=== PATIENT | female | born 1945 | race Caucasian/White ===

== ENCOUNTER 2017-08-04 12:20 | Outpatient (CLI) ==
[2015-07-22 09:15] VITALS: BMI 25.1
--- NOTE | 2017-08-04 14:47 | US ---
EXAM: Thyroid ultrasound History: Abnormal thyroid function. Technique: Multiple sonographic images through the thyroid gland were obtained. Color duplex Dopple r was used to interrogate vascular flow. Findings: The right lobe of the thyroid measures 3.5 cm x 1.3 cm x 0.8 cm and is without discrete nodule identi fied. The thyroid isthmus measures 0.3 cm in thickness. There is a 5 mm nodule within the right side of th e thyroid isthmus. The left lobe of the thyroid measures 3.2 cm x 1.3 cm x 0.9 cm demonstrates a few small calcification s with the largest measuring 3 mm. The thyroid gland is not hypervascular. The thyroid gland is heterogeneous in general. No extrathyr oidal masses are identified. Impression: Normal sized heterogeneous thyroid gland with no suspicious nodules.
== END 2017-08-04 12:21 | disposition home or self-care (01) ==
LOC: RAD 12:20
PROVIDERS: ATTEND Family Medicine
DX: R89.9 Unspecified abnormal finding in specimens from other organs, systems and tissues (principal)

== ENCOUNTER 2017-11-07 09:00 | Outpatient (CLI) | payer OTHER ==
[2015-07-22 09:15] VITALS: BMI 25.1
[2017-11-07] MEDS ORDERED: VENOFER 200 MG in SODIUM CHLORIDE 100 ML IV ONE (09:19)
[2017-11-07 09:43] VITALS: BP 167/87; TEMP 97.1
== END 2017-11-07 09:01 | disposition home or self-care (01) ==
LOC: OPMED 09:00
PROVIDERS: ATTEND Internal Medicine
DX: D50.9 Iron deficiency anemia, unspecified (principal); K90.9 Intestinal malabsorption, unspecified

== ENCOUNTER 2017-11-09 11:00 | Outpatient (CLI) | payer OTHER ==
[2015-07-22 09:15] VITALS: BMI 25.1
[2017-11-09] MEDS ORDERED: VENOFER 200 MG in SODIUM CHLORIDE 100 ML IV ONE (11:12)
[2017-11-09 11:17] VITALS: BP 128/78; TEMP 97
== END 2017-11-09 11:01 | disposition home or self-care (01) ==
LOC: OPMED 11:00
PROVIDERS: ATTEND Internal Medicine
DX: D50.9 Iron deficiency anemia, unspecified (principal); K90.9 Intestinal malabsorption, unspecified
CPT/HCPCS: 96365

== ENCOUNTER 2017-11-14 09:15 | Outpatient (CLI) ==
[2015-07-22 09:15] VITALS: BMI 25.1
[2017-11-14] MEDS ORDERED: VENOFER 200 MG in SODIUM CHLORIDE 100 ML IV ONE (10:20)
[2017-11-15 15:31] VITALS: BP 112/63; TEMP 98.7
== END 2017-11-14 09:16 | disposition home or self-care (01) ==
LOC: OPMED 09:15
PROVIDERS: ATTEND Internal Medicine
DX: D50.9 Iron deficiency anemia, unspecified (principal); K90.9 Intestinal malabsorption, unspecified
CPT/HCPCS: 96365

== ENCOUNTER 2017-12-08 10:24 | Outpatient (CLI) ==
[2015-07-22 09:15] VITALS: BMI 25.1
== END 2017-12-08 10:25 | disposition home or self-care (01) ==
LOC: LAB 10:24
PROVIDERS: ATTEND Family Medicine
DX: E03.9 Hypothyroidism, unspecified (principal)
CPT/HCPCS: 36415; 84439; 84443

== ENCOUNTER 2022-10-26 08:48 | Inpatient (IN) ==
--- NOTE | 2022-10-26 08:53 | ED.PDOC ---
General ED Provider: Dr. NADINE JIMENEZ MD Chief Complaint: Hip Pain/Injury Stated Complaint: Hip pain 77-year-old female arrives via EMS for evaluation of hip pain. Patient has chronic hip pain for the last several months. Is managed with hydrocodone 7.5 mg. Reports that her pain has been worse in the last month. She had a fall last night that now is made it so she can barely move. Reports pain that is into her groin. States her left side is worse than her right. Time Seen by Provider: 10/26/22 08:51 Mode of Arrival: Ambulance Information Source: Patient Primary Care Provider: LYNN CHAPMAN Nursing and Triage Documentation Reviewed and Agree: Yes Does patient meet sepsis criteria?: No System Inflammatory Response Syndrome: Not Applicable Sepsis Protocol: For patient's 13 years and over: Temp is 96.8 and below OR 101 and greater Pulse >90 BPM Resp >20/minute Acutely Altered Mental Status Are patient's symptoms suggestive of a new infection, such as: -Pneumonia -Skin, Soft Tissue -Endocarditis -UTI -Bone, Joint Infection -Implantable Device -Acute Abdominal Infection -Wound Infection -Meningitis -Blood Stream Catheter Infection -Unknown Review of Systems Review Of Systems Constitutional: Reports No symptoms All Other Systems: Reviewed and Negative [facility] Surgical History History of ankle surgery Z98.890 - Other specified postprocedural states (ICD-10) Status post appendectomy Z90.49 - Acquired absence of other specified parts of digestive tract (ICD- 10) Status post cholecystectomy Z90.49 - Acquired absence of other specified parts of digestive tract (ICD- 10) Status post tonsillectomy Z90.89 - Acquired absence of other organs (ICD-10) Female Reproductive History Menstrual Hx Hysterectomy: No Hx Tubal Ligation: No Physical Exam Physical Exam Appearance: Reports Well-appearing Ill-appearing: None Pain Distress: None Eyes: Reports EOMI ENT: Reports Oropharynx normal Neck: Supple Respiratory: Reports Airway patent Cardiovascular: Reports Pulses normal GI/: Reports Not Examined Musculoskeletal: Reports Other (Pain with attempted range of motion of left hip. No shortening or rotation appreciated. No pain in ankle, knees bilaterally. She does have tenderness to palpation over bilateral greater trochanters.) Skin: Reports Warm, Dry and Normal color Neurological: Reports Alert and Oriented Psychiatric: Reports Affect appropriate Critical Care Note Critical Care Note Total Critical Care Time (mins): 0 Course Course Orders, Labs, Meds: Lab Review 10/26/22 09:20 Urine Color Yellow Urine Clarity Clear Urine pH 5.5 Ur Specific [place] 1.015 Urine Protein Negative Urine Glucose (UA) Negative Urine Ketones Negative Urine Blood Negative Urine Nitrite Negative Urine Bilirubin Negative Urine Urobilinogen 0.2 Ur Leukocyte Esterase Negative Orders Category Date Time Status UA [URINALYSIS C & S IF INDICATED] Stat LAB 10/26/22 09:[address] PELVIS W/O CONTRAST Stat RADS 10/26/22 09:40 Completed HIP, LEFT 2VWS W OR W/O PELVIS Stat RADS 10/26/22 08:51 Completed Patient reports that she been having urinary frequency. Urinalysis unremarkable. X-ray of the hip and pelvis shows pubic rami fracture. They recommend CT for further delineation of the extent of injuries. 11:[address] of the pelvis finally has been read. Multiple findings of notes including superior and inferior pubic rami fracture on the left, sacral insufficiency fracture, pelvic hematoma. Will discuss case with orthopedic surgery at [facility]. Doubt need for surgical intervention, but will clarify appropriate treatment plan and any further work-up required with orthopedics. 11:58 AM Case discussed with SUDHAKAR Trejo for Dr. Palumbo. Reviewed CT findings and patient's physical exam. He states there is no need for surgical intervention. The patient can follow-up with their office as an outpatient in 2 weeks. Plan to admit to the hospitalist service at our facility for pain control and evaluation by PT/OT. Vital Signs: Temp Pulse Resp BP Pulse Ox 10/26/22 08:49 97.9 F 83 20 135/72 98 Discharge Plan Discharge Patient Disposition: PLACED OBSERVATION Discharge Problem: Sacral insufficiency fracture, Closed fracture of pubic ramus Prescriptions: No Action duloxetine [Cymbalta] 20 mg capsule,delayed release(DR/EC) 20 mg PO DAILY hydrocodone-acetaminophen 7.5-325 mg tablet 1 tab PO Q6H PRN (Reason: pain) ibuprofen 200 MG capsule 400 mg PO PRN PRN (Reason: Analgesia) aspirin [Aspir-Low] 81 MG tablet,delayed release (DR/EC) 81 mg PO DAILY fluoxetine [Prozac] 20 MG capsule 1 cap PO DAILY Hold Instructions: doctor changed atorvastatin [Lipitor] 80 MG tablet 1 tab PO DAILY pantoprazole [Protonix] 20 MG tablet,delayed release (DR/EC) 20 mg PO BID gabapentin 300 MG capsule 2 cap PO TID Did you review [place] INFORMATION SECURITY CONSULTANT for ALL controlled substances?: Not Applicable ED Provider: NADINE JIMENEZ Condition: Good Physician Progress Note: []
--- NOTE | 2022-10-26 09:29 | DI ---
EXAM: AP PELVIS AND TWO VIEWS OF THE LEFT HIP HISTORY: Pain. COMPARISON: CT pelvis from 07/09/2021. FINDINGS/IMPRESSION: Unexpected finding. Comminuted fractures of the left pubic rami and left pubic body. The sacrum is partially obscured by pelvic contents and there is generalized osteopenia. An additional fracture is difficult to exclude. Degenerative changes to the hips, pelvis and lower lumbar spine. Consider follow-up CT pelvis for further evaluation.
[2022-10-26 10:45] LABS: BILIRUBIN,URINE Negative (NEGATIVE); CLARITY,URINE Clear (CLEAR); COLOR,URINE Yellow (YELLOW); GLUCOSE, URINE (UA) Negative (NEGATIVE); KETONES,URINE Negative (NEGATIVE); LEUKOCYTE ESTERASE ,URINE Negative (NEGATIVE); NITRITE,URINE Negative (NEGATIVE); PH,URINE 5.5 (5-9); PROTEIN,URINE Negative (NEGATIVE); URINE, BLOOD Negative (NEGATIVE); UROBILINOGEN,URINE 0.2 (0.2)
--- NOTE | 2022-10-26 11:03 | CT ---
EXAM: CT OF THE PELVIS WITHOUT CONTRAST COMPARISON: Pelvis/left hip radiograph 10/26/2022. CT pelvis 07/09/2021. HISTORY: Fall yesterday, landing on the left side. Fractures seen on recent radiographs. Reported change in urinary habits with uncontrolled urination. TECHNIQUE: Noncontrast CT images of the pelvis were obtained. Axial reconstructions with sagittal a nd coronal reformats were provided. FINDINGS: Comminuted fracture through the left superior inferior pubic ramus with extension into a p arasymphyseal location. There is up to 0.5 cm displacement of fracture fragments in a parasymphyseal location through the adjacent superior pubic ramus. There is edema and ill-defined fluid with stran ding of the fat within the adjacent left kaleb pelvis. 6.2 x 2.3 x 1.5 cm ill-defined region of abnor mal attenuation along the left lateral margin of the urinary bladder best seen on image 65 of the axi al series suggests a small hematoma related to underlying fracture. This extends along the margin of the bladder without significant mass effect at this time. The bladder itself is grossly unremarkabl e. Bilateral sacral alar insufficiency fractures more extensive on the right side extending from S1- S4. The insufficiency fracture of the sacrum traverses the midline at the level of the upper third a nd lower second sacral segment with up to 0.5 cm cortical step off at that level. There is some angu lation up to 3 mm retropulsion of the posterior cortex of the second and third sacral segments as see n on the sagittal view. No significant sacral foraminal narrowing. Diffuse demineralization. Minim al chronic-appearing irregularity of the anteromedial cortex of the left femoral neck without definit e evidence of an acute fracture. Intervertebral disc space narrowing throughout the visualized lower lumbar spine with bilateral facet hypertrophy. Grade 1 anterolisthesis at L4/L5 as noted on CT lumbar spine 07/09/2021. Moderate hyp ertrophic degenerative changes of the sacroiliac joints without ankylosis. Marked hypertrophic degen erative change and chronic osseous remodeling at the pubic symphysis. Mild to moderate degenerative changes of the hips bilaterally. Mild subcutaneous edema posteriorly at the sacrum and coccyx without deep decubitus ulcer or drainabl e fluid collection. Stranding of the fat along the margin of the rectus abdominous musculature bilat erally through the level of the pubic symphysis and along the anterosuperior aspect of the urinary bl adder. IMPRESSION: Comminuted fracture with displacement of the left superior/inferior pubic rami through t he parasymphyseal portion of the pubic symphysis. Stranding of the fat within the underlying pelvis with a 6.2 x 2.3 x 1.5 cm suspected hematoma along the left anterolateral aspect of the bladder as de tailed above. Correlation with CT urography could be considered if there is high clinical concern fo r bladder injury. Comminuted insufficiency fracture of the sacrum involving the sacral ala bilaterally and with fractur e traversing the midline at S2 and S3. Mild retropulsion at that site. Correlate with neurovascular exam. No significant sacral foraminal narrowing. Mild chronic cortical irregularity of the the anteromedial aspect of the left femoral neck without de finite acute fracture. Demineralization. Additional chronic / degenerative changes as detailed above. All CT scans are performed using dose optimization techniques as appropriate to the performed exam an d include at least one of the following: Automated exposure control, adjustment of the mA and/or kV according t o size, and the use of iterative reconstruction technique.
[2022-10-26] MEDS ORDERED: MORPHINE 4 MG/ML SYRINGE IVP ONE (12:41)
[2022-10-26 13:45] VITALS: BMI 27.1
[2022-10-26] MEDS ORDERED: TYLENOL PO PRN (13:49)
[2022-10-26] MEDS ORDERED: ZOFRAN 4 MG/2 ML IVP PRN (13:49)
[2022-10-26] MEDS ORDERED: MORPHINE 2 MG/ML SYRINGE IVP PRN (13:49)
--- NOTE | 2022-10-26 14:02 | PCM ---
Date of Service Date Seen by Provider: 10/26/22 Time Seen by Provider: 13:30 Admit Day/Time Admission Date: 10/26/22 Reason for Admission Chief Complaint: PELVIC FRACTURE, PAIN CONTROL Hospital Provider Hospital Provider: REYNALDO GUEVARA, [facility] [place] Primary Care Physician Primary Care Physician: LYNN CHAPMAN History of Present Illness History of Present Illness: 77-year-old female presented to the ER following a fall from yesterday. Patient sustained a fall around October 15 resulting in multiple pelvic fractures. Patient was discharged home to follow-up with physical therapy outpatient. Yesterday daughter was at home with patient and advised patient to walk without walker and patient fell again. No no new injuries noted. No loss of consciousness. Patient denies fever, chills, shortness of breath, chest pain, nausea, vomiting or diarrhea. Patient states that since the fall yesterday she has had uncontrolled pain which brought her to the ER today. She has been taking [place] 7.5's at home every 6 hours as needed for pain. Case Discussed With Case Discussed With: Patient's case was discussed with the ER Physicians, Dr. Varela. [facility] Medical History (Updated 10/26/22 @ 13:59 by REYNALDO GUEVARA) Acid reflux disease K21.9 - Gastro-esophageal reflux disease without esophagitis (ICD-10) Anxiety F41.9 - Anxiety disorder, unspecified (ICD-10) Breast cancer C50.919 - Malignant neoplasm of unspecified site of unspecified female breast (ICD-10) Closed fracture of pubic ramus S32.599A - Other specified fracture of unspecified pubis, initial encounter for closed fracture (ICD-10) Compression fx, thoracic spine S22.000A - Wedge compression fracture of unspecified thoracic vertebra, initial encounter for closed fracture (ICD-10) Hypercholesteremia E78.00 - Pure hypercholesterolemia, unspecified (ICD-10) Hypertension I10 - Essential (primary) hypertension (ICD-10) Neuropathy G62.9 - Polyneuropathy, unspecified (ICD-10) Sacral insufficiency fracture M84.48XA - Pathological fracture, other site, initial encounter for fracture (ICD-10) Surgical History (Updated 10/26/22 @ 13:59 by REYNALDO GUEVARA) History of ankle surgery Z98.890 - Other specified postprocedural states (ICD-10) 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 - Presence of aortocoronary bypass graft (ICD-10) Status post appendectomy Z90.49 - Acquired absence of other specified parts of digestive tract (ICD- 10) Status post cholecystectomy Z90.49 - Acquired absence of other specified parts of digestive tract (ICD- 10) Status post mastectomy Z90.10 - Acquired absence of unspecified breast and nipple (ICD-10) Status post tonsillectomy Z90.89 - Acquired absence of other organs (ICD-10) Family History Other CHF (congestive heart failure) Coronary artery arteriosclerosis Hypertension Social History Smoking and tobacco status: Never smoker Allergies Allergies Allergy/AdvReac Type Severity Reaction Status Date / Time No Known Allergies Allergy Verified 10/26/22 08:55 Current Medications Home Medications ibuprofen 200 mg capsule 400 mg PO PRN PRN Analgesia 07/22/15 [History Confirmed 10/26/22 Last Taken Unknown] aspirin 81 mg tablet,delayed release (Aspir-Low) 81 mg PO DAILY 11/07/17 [History Confirmed 10/26/22 Last Taken 11/09/17 08:00] fluoxetine 20 mg capsule (Prozac) 1 cap PO DAILY 11/07/17 [History Confirmed 10/26/22 Last Taken 11/09/17] atorvastatin 80 mg tablet (Lipitor) 1 tab PO DAILY 11/09/17 [History Confirmed 10/26/22 Last Taken 11/08/17 17:00] gabapentin 300 mg capsule 2 cap PO TID 11/09/17 [History Confirmed 10/26/22 Last Taken 11/08/17 21:00] pantoprazole 20 mg tablet,delayed release (Protonix) 20 mg PO BID 11/09/17 [History Confirmed 10/26/22 Last Taken 11/09/17] duloxetine 20 mg capsule,delayed release (Cymbalta) 20 mg PO DAILY 10/26/22 [History Confirmed 10/26/22 Last Taken Unknown] hydrocodone 7.5 mg-acetaminophen 325 mg tablet 1 tab PO Q6H PRN pain 10/26/22 [History Confirmed 10/26/22 Last Taken Unknown] Home Acetaminophen (Acetaminophen 325 Mg Tablet) 650 mg PO Q4H PRN PRN Reason: Mild Pain Hydrocodone Bitart/Acetaminophen (Hydrocodone Bit/Acetaminophen 7.5/325 Mg Tablet) 1 tab PO Q4HR PRN PRN Reason: MODERATE PAIN Enoxaparin Sodium (Enoxaparin Sodium 30 Mg/0.3 Ml Syr) 30 mg SUBCUT DAILY MÓNICA Morphine Sulfate (Morphine Sulfate 2 Mg/Ml Syringe) 4 mg IVP Q6H PRN PRN Reason: Severe Pain Ondansetron HCl (Ondansetron Hcl/Pf 4 Mg/2 Ml Sdv) 4 mg IVP Q6H PRN PRN Reason: Nausea / Vomiting Discontinued Medications Morphine Sulfate (Morphine Sulfate 4 Mg/Ml Syringe) 4 mg IVP ONCE ONE Stop: 10/26/22 12:42 Last Admin: 10/26/22 13:01 Dose: 4 mg Review of Systems Constitutional: Reports No symptoms Head: Reports Normocephalic and Atraumatic Eyes: Reports No symptoms Ears: Reports No symptoms Nose: Reports No symptoms Mouth: Reports No symptoms Throat: Reports No symptoms Cardiovascular: Reports No symptoms Respiratory: Reports No symptoms Gastrointestinal: Reports No symptoms Genitourinary: Reports No Symptoms Musculoskeletal: Reports Other (bilateral hip pain) Endocrine: Reports No symptoms Hematology: Reports No symptoms Immunology: Reports No symptoms Neurological: Reports No symptoms Psychiatric: Reports No symptoms Physical examination Most Recent Vital Signs: Most Recent Vital Signs Temperature 97.0 F L 10/26/22 13:25 Temperature Source Temporal Artery Scan 10/26/22 13:25 Temperature Source Infrared 10/26/22 08:49 Pulse Rate 84 10/26/22 13:25 Respiratory Rate 16 10/26/22 13:25 Blood Pressure 135/72 10/26/22 08:49 Blood Pressure Left Arm 114/68 10/26/22 13:25 Blood Pressure Position Supine 10/26/22 13:25 O2 Sat by Pulse Oximetry 97 10/26/22 13:25 Oxygen Delivery Method Room Air 10/26/22 13:25 Height 5 ft 10/26/22 13:25 Weight 139 lb 10/26/22 13:25 Appearance: Positive Well-appearing, Well-nourished, No Apparent Distress and Alert and Oriented x3 Skin: Positive Warm, Good Turgor and Good Color HEENT: Positive Normocephalic, Atraumatic and PERRLA Neck: Positive Supple and Midline Trachea Chest/Lungs: Positive Symmetrical With Equal Breath Sounds, Clear to Auscultatio n Bilaterally and Good Air Movement all 4 Lung [place] Heart: Positive RRR, Pulses Normal, No S3 Auscultated and No S4 Auscultated GI/: Positive Soft, Nontender, Bowel Sounds Normal, No Distention and No Organomegaly Musculoskeletal: Positive Tenderness (bilateral hips) and Decreased ROM (Left worse than right) Extremities: Positive Intact Peripheral Pulses, Joint Tenderness and Joint Discomfort Neurological: Positive Sensation Intact, Alert and Muscle Strength 5/5 in Upper and Lower Extremities Bilaterally (weakness to lower extremities due to pelvic fractures) Psychiatric: Positive Oriented x4, Appropriate Mood, Appropriate Affect, Intact Memory, Good Short-Term Recall, Good Long-Term Recall, Normal Judgement and Normal Insight Labs This Visit Labs This Visit: Labs This Visit 10/26/22 09:20 Urine Color Yellow Urine Clarity Clear Urine pH 5.5 Ur Specific [place] 1.015 Urine Protein Negative Urine Glucose (UA) Negative Urine Ketones Negative Urine Blood Negative Urine Nitrite Negative Urine Bilirubin Negative Urine Urobilinogen 0.2 Ur Leukocyte Esterase Negative Imaging Imaging: EXAM: AP PELVIS AND TWO VIEWS OF THE LEFT HIP FINDINGS/IMPRESSION: Unexpected finding. Comminuted fractures of the left pubic rami and left pubic body. The sacrum is partially obscured by pelvic contents and there is generalized osteopenia. An additional fracture is difficult to exclude. Degenerative changes to the hips, pelvis and lower lumbar spine. Consider follow-up CT pelvis for further evaluation. EXAM: CT OF THE PELVIS WITHOUT CONTRAST FINDINGS: Comminuted fracture through the left superior inferior pubic ramus with extension into a parasymphyseal location. There is up to 0.5 cm displacement of fracture fragments in a parasymphyseal location through the adjacent superior pubic ramus. There is edema and ill-defined fluid with stranding of the fat within the adjacent left kaleb pelvis. 6.2 x 2.3 x 1.5 cm ill-defined region of abnormal attenuation along the left lateral margin of the urinary bladder best seen on image 65 of the axial series suggests a small hematoma related to underlying fracture. This extends along the margin of the bladder without significant mass effect at this time. The bladder itself is grossly unremarkable. Bilateral sacral alar insufficiency fractures more extensive on the right side extending from S1-S4. The insufficiency fracture of the sacrum traverses the midline at the level of the upper third and lower second sacral segment with up to 0.5 cm cortical step off at that level. There is some angulation up to 3 mm retropulsion of the posterior cortex of the second and third sacral segments as seen on the sagittal view. No significant sacral foraminal narrowing. Diffuse demineralization. Minimal chronic-appearing irregularity of the anteromedial cortex of the left femoral neck without definite evidence of an acute fracture. Intervertebral disc space narrowing throughout the visualized lower lumbar spine with bilateral facet hypertrophy. Grade 1 anterolisthesis at L4/L5 as noted on CT lumbar spine 07/09/2021. Moderate hypertrophic degenerative changes of the sacroiliac joints without ankylosis. Marked hypertrophic degenerative change and chronic osseous remodeling at the pubic symphysis. Mild to moderate degenerative changes of the hips bilaterally. Mild subcutaneous edema posteriorly at the sacrum and coccyx without deep dec ubitus ulcer or drainable fluid collection. Stranding of the fat along the margin of the rectus abdominous musculature bilaterally through the level of the pubic symphysis and along the anterosuperior aspect of the urinary bladder. IMPRESSION: Comminuted fracture with displacement of the left superior/inferior pubic rami through the parasymphyseal portion of the pubic symphysis. Stranding of the fat within the underlying pelvis with a 6.2 x 2.3 x 1.5 cm suspected hematoma along the left anterolateral aspect of the bladder as detailed above. Correlation with CT urography could be considered if there is high clinical concern for bladder injury. Comminuted insufficiency fracture of the sacrum involving the sacral ala bilaterally and with fracture traversing the midline at S2 and S3. Mild retropulsion at that site. Correlate with neurovascular exam. No significant sacral foraminal narrowing. Mild chronic cortical irregularity of the the anteromedial aspect of the left femoral neck without definite acute fracture. Demineralization. Additional chronic / degenerative changes as detailed above. Review Statement Review Statement: I have independently reviewed and interpreted the labs/EKGs/imaging that were ordered by the ER provider. I have reviewed all outside records that are available currently in our EMR including imaging/notes/labs from previous visits. Plan Plan: 1. Intractable pain in setting of fracture of the pubic rami and sacrum - continue home norco Q6H prn for pain, morphine 4 mg Q6H prn for severe pain, ER provider spoke with Xander DE LA FUENTE for Dr. Linwood ba and reported that no intervention needed for fractures, PT/OT to consult/eval, montoya catheter placed for ease of pain control d/t movement 2. Hypertension - chronic, stable, continue home medications 3. Hyperlipidemia - chronic, stable, continue home medications 4. GERD - chronic, continue home medications 5. Anxiety/Depression - continue home medications DVT Prophylaxis: Lovenox Time Spent: Greater than 80 minutes spent with patient, 50% of the time spent with this patient was devoted to counseling and coordination of care. [facility]annin minutes spent discussing advance care planning. Smoking Cessation: 3-10 minutes spent discussing smoking cessation. Disposition: Admit to: Full code Med/Surg Observation Discussed Plan of Care with Dr. Ranulfo Hernandez. Medications Medication Orders: Medications Ordered Category Date Time Status Acetaminophen [Tylenol] Meds 10/26/22 13:49 Ordered 650 mg PO Q4H PRN Enoxaparin Sodium [Lovenox] Meds 10/27/22 09:00 Ordered 30 mg SUBCUT DAILY Hydrocodone Bit/Acetaminophen [[place] 7.5-325] Meds 10/26/22 13:49 Ordered 1 tab PO Q4HR PRN Morphine Sulfate [Morphine 2 mg/ml Syringe] Meds 10/26/22 13:49 Ordered 4 mg IVP Q6H PRN Ondansetron HCl/Pf [Zofran 4 mg/2 ml] Meds 10/26/22 13:49 Ordered 4 mg IVP Q6H PRN
[2022-10-26 14:05] LABS: BASOPHILS % (AUTO) 0.4 % (0.0-3.0); EOSINOPHILS # (AUTO) 0.2 K/ul (0.0-0.7); EOSINOPHILS % (AUTO) 3.8 % (0.0-7.0); HEMATOCRIT 33.6 % (37.0-47.0); IMMATURE GRANULOCYTE % (AUTO) 0.2 % (0.0-5.0); LYMPHOCYTES # (AUTO) 1.2 K/uL (0.60-3.4); LYMPHOCYTES % (AUTO) 22.1 (10.0-50.0); MEAN CORPUSCULAR HEMOGLOBIN 29.4 pg (27.0-31.0); MEAN CORPUSCULAR HGB CONC 32.7 (31.8-35.4); MEAN CORPUSCULAR VOLUME 89.8 fl (81.0-99.0); MONOCYTES # (AUTO) 0.4 K/uL (0.4-2.0); MONOCYTES % (AUTO) 6.5 (0-10); NEUTROPHILS # (AUTO) 3.7 K/ul (2.0-6.9); PLATELET COUNT 408 10^3/uL (140-440); RDW COEFFICIENT OF VARIATION 14.1 % (11.6-14.8); RED BLOOD COUNT 3.74 10^6/ul (4.20-5.40); WHITE BLOOD COUNT 5.51 K/ul (4.6-10.2)
[2022-10-26] MEDS ORDERED: MOTRIN PO PRN (14:11)
[2022-10-26 14:19] LABS: ALANINE AMINOTRANSFERASE 22.3 U/L (0-35); ALBUMIN 4.01 g/dL (3.5-5.0); ALKALINE PHOSPHATASE 394.9 U/L (53-141); ASPARTATE AMINO TRANSFERASE 29.8 U/L (14-36); BILIRUBIN,TOTAL 0.67 mg/dL (0.2-1.3); BLOOD UREA NITROGEN 21.4 mg/dL (7-17); CALCIUM 8.46 mg/dL (8.4-10.2); CARBON DIOXIDE 32.7 mmol/L (22-30.0); CHLORIDE 94.5 mmol/L (98-107); CREATININE 0.83 mg/dL (0.60-1.30); GLUCOSE 117.9 mg/dL (74-106); SODIUM 130.2 mmol/L (134.5-145); TOTAL PROTEIN 7.54 g/dL (6.3-8.2)
[2022-10-26] MEDS ORDERED: MORPHINE 4 MG/ML SYRINGE IVP PRN (14:19)
[2022-10-26] MEDS ORDERED: POTASSIUM CHLORIDE 20 MEQ/100 ML PREMIX 20 MEQ/100 ML BAG IV ONE (14:30)
[2022-10-26] MEDS ORDERED: K-DUR PO ONE (14:30)
[2022-10-26] MEDS: NORCO 7.5-325 PO PRN ×2 (14:53→19:53)
[2022-10-26] MEDS: DULCOLAX PO PRN (14:54)
[2022-10-26] MEDS: SODIUM CHLORIDE 1,000 ML IV SCH (14:59)
[2022-10-26] MEDS ORDERED: NEURONTIN PO SCH (15:00)
[2022-10-26] MEDS ORDERED: PRILOSEC PO SCH (17:00)
[2022-10-26] MEDS: COREG PO SCH (18:05)
[2022-10-26] MEDS: RELAFEN PO SCH (18:06)
[2022-10-26] MEDS: MACRODANTIN PO SCH (20:13)
[2022-10-26] MEDS: CYMBALTA PO SCH (20:13)
[2022-10-26] MEDS: NEURONTIN PO SCH (20:13)
[2022-10-26] MEDS ORDERED: NABUMETONE 500 MG PO SCH (21:00)
[2022-10-26] MEDS ORDERED: DULOXETINE 20 MG PO SCH (21:00)
[2022-10-26] MEDS ORDERED: PANTOPRAZOLE 20 MG PO SCH (21:00)
[2022-10-26] MEDS ORDERED: NITROFURANTOIN 100 MG PO SCH (21:00)
[2022-10-27] MEDS: SODIUM CHLORIDE 1,000 ML IV SCH ×3 (00:57→21:05)
[2022-10-27] MEDS: NORCO 7.5-325 PO PRN ×4 (01:09→18:20)
[2022-10-27 04:58] LABS: BASOPHILS % (AUTO) 0.2 % (0.0-3.0); EOSINOPHILS # (AUTO) 0.2 K/ul (0.0-0.7); EOSINOPHILS % (AUTO) 4.8 % (0.0-7.0); HEMATOCRIT 26.8 % (37.0-47.0); HEMOGLOBIN 8.7 g/dl (12.0-16.0); IMMATURE GRANULOCYTE % (AUTO) 0.2 % (0.0-5.0); LYMPHOCYTES # (AUTO) 1.5 K/uL (0.60-3.4); LYMPHOCYTES % (AUTO) 29.2 (10.0-50.0); MEAN CORPUSCULAR HEMOGLOBIN 29.4 pg (27.0-31.0); MEAN CORPUSCULAR HGB CONC 32.5 (31.8-35.4); MEAN CORPUSCULAR VOLUME 90.5 fl (81.0-99.0); MONOCYTES # (AUTO) 0.4 K/uL (0.4-2.0); MONOCYTES % (AUTO) 8.7 (0-10); NEUTROPHILS # (AUTO) 2.9 K/ul (2.0-6.9); NEUTROPHILS % (AUTO) 56.9 % (42.2-75.2); PLATELET COUNT 308 10^3/uL (140-440); RDW COEFFICIENT OF VARIATION 14.3 % (11.6-14.8); RED BLOOD COUNT 2.96 10^6/ul (4.20-5.40); WHITE BLOOD COUNT 5.03 K/ul (4.6-10.2)
[2022-10-27 05:16] LABS: ALANINE AMINOTRANSFERASE 18.3 U/L (0-35); ALBUMIN 3.13 g/dL (3.5-5.0); ALKALINE PHOSPHATASE 302.3 U/L (53-141); ASPARTATE AMINO TRANSFERASE 28.4 U/L (14-36); BILIRUBIN,TOTAL 0.58 mg/dL (0.2-1.3); BLOOD UREA NITROGEN 20.4 mg/dL (7-17); CALCIUM 8.15 mg/dL (8.4-10.2); CARBON DIOXIDE 27.8 mmol/L (22-30.0); CHLORIDE 103.6 mmol/L (98-107); CREATININE 0.85 mg/dL (0.60-1.30); GLUCOSE 105.5 mg/dL (74-106); MAGNESIUM 2.38 mg/dL (1.6-2.3); POTASSIUM 3.92 mmol/L (3.5-5.1); SODIUM 131.7 mmol/L (134.5-145); TOTAL PROTEIN 6.13 g/dL (6.3-8.2)
[2022-10-27] MEDS: SYNTHROID PO SCH (05:56)
[2022-10-27] MEDS: PROTONIX PO SCH ×2 (05:57→16:00)
[2022-10-27] MEDS: LIPITOR PO SCH (08:38)
[2022-10-27] MEDS: ASPIRIN EC PO SCH (08:39)
[2022-10-27] MEDS: NEURONTIN PO SCH ×3 (08:39→20:21)
[2022-10-27] MEDS: RELAFEN PO SCH ×2 (08:39→17:22)
[2022-10-27] MEDS: SODIUM CHLORIDE PO SCH ×2 (08:40→20:20)
[2022-10-27] MEDS: CYMBALTA PO SCH ×3 (08:40→20:21)
[2022-10-27] MEDS: COREG PO SCH ×2 (08:40→17:22)
[2022-10-27] MEDS: DULCOLAX PO PRN (08:46)
[2022-10-27] MEDS: LOVENOX SUBCUT SCH (08:46)
[2022-10-27 08:53] LABS: IRON 39.9 ug/dL (37-170)
[2022-10-27] MEDS: HYZAAR 50-12.5 MG TAB PO SCH (08:53)
--- NOTE | 2022-10-27 08:57 | PCM.PROG ---
Date/Time Seen Date Seen by Provider: 10/27/22 Time Seen by Provider: 08:10 Provider Provider[facility] Chief Complaint Chief Complaint: PELVIC FRACTURE, PAIN CONTROL Subjective Subjective: No events overnight. No fever. Still in lots of pain requesting different medications. Objective Appearance: Positive No Apparent Distress and Alert and Oriented x3 Chest/Lungs: Positive Symmetrical With Equal Breath Sounds, Clear to Auscultation Bilaterally and Good Air Movement all 4 Lung [place] Heart: Positive RRR and Pulses Normal GI/: Positive Soft, Nontender, Bowel Sounds Normal, No Distention and No Organomegaly Musculoskeletal: Positive Tenderness Neurological: Positive Motor intact, Alert and Oriented Vital Signs Vital Signs: Vital Signs: Last 24 Hours 10/26/22 13:25 10/26/22 18:00 10/26/22 13:25 Temperature 97.0 F L 96.2 F L Temperature Source Temporal Artery Scan Temporal Artery Scan Pulse Rate 84 84 Respiratory Rate 16 17 Blood Pressure 90/56 L Blood Pressure Mean 67 Blood Pressure Left Arm 114/68 Blood Pressure Location Left Arm Blood Pressure Position Supine Supine O2 Sat by Pulse Oximetry 97 97 Oxygen Delivery Method Room Air Room Air Room Air Height 5 ft Weight 139 lb 10/26/22 18:48 10/26/22 20:00 10/26/22 22:00 Temperature 97.3 F L Temperature Source Temporal Artery Scan Pulse Rate 83 70 Respiratory Rate 18 Blood Pressure 102/63 104/59 L Blood Pressure Mean 76 74 Blood Pressure Left Arm Blood Pressure Location Right Arm Left Arm Blood Pressure Position Sitting Supine O2 Sat by Pulse Oximetry 94 L Oxygen Delivery Method Room Air Room Air Room Air Height Weight 10/27/22 05:09 Temperature 97.6 F Temperature Source Temporal Artery Scan Pulse Rate 73 Respiratory Rate 18 Blood Pressure 116/63 Blood Pressure Mean 80 Blood Pressure Left Arm Blood Pressure Location Left Arm Blood Pressure Position Supine O2 Sat by Pulse Oximetry 94 L Oxygen Delivery Method Room Air Height Weight Lab Results Lab Results: Lab Results: Last 24 Hours 10/27/22 10/26/22 10/26/22 04:38 14:01 09:20 WBC 5.03 5.51 RBC 2.96 L 3.74 L Hgb 8.7 L 11.0 L Hct 26.8 L D 33.6 L MCV 90.5 89.8 MCH 29.4 29.4 MCHC 32.5 32.7 RDW Coeff of Ramon 14.3 14.1 Plt Count 308 408 Immature Gran % (Auto) 0.2 0.2 Neut % (Auto) 56.9 67.0 Lymph % (Auto) 29.2 22.1 Larue % (Auto) 8.7 6.5 Eos % (Auto) 4.8 3.8 Baso % (Auto) 0.2 0.4 Neut # (Auto) 2.9 3.7 Lymph # (Auto) 1.5 1.2 Larue # (Auto) 0.4 0.4 Eos # (Auto) 0.2 0.2 Baso # (Auto) 0.0 0.0 Immature Gran # (Auto) 0.0 0.0 Sodium 131.7 L 130.2 L Potassium 3.92 3.00 L Chloride 103.6 94.5 L Carbon Dioxide 27.8 32.7 H Anion Gap 4.22 6.00 BUN 20.4 H 21.4 H Creatinine 0.85 0.83 Estimated GFR (MDRD) 65.00 67.00 BUN/Creatinine Ratio 24.00 25.78 Glucose 105.5 117.9 H Calcium 8.15 L 8.46 Magnesium 2.38 H Total Bilirubin 0.58 0.67 AST 28.4 29.8 ALT 18.3 22.3 Alkaline Phosphatase 302.3 H D 394.9 H Total Protein 6.13 L 7.54 Albumin 3.13 L 4.01 Globulin 3.00 3.53 Albumin/Globulin Ratio 1.04 1.13 Urine Color Yellow Urine Clarity Clear Urine pH 5.5 Ur Specific [place] 1.015 Urine Protein Negative Urine Glucose (UA) Negative Urine Ketones Negative Urine Blood Negative Urine Nitrite Negative Urine Bilirubin Negative Urine Urobilinogen 0.2 Ur Leukocyte Esterase Negative Additional Comments Additional Comments: I have independently reviewed and interpreted the labs/EKGs/imaging ordered during this hospital stay. I have reviewed outside records that are available in our EMR that pertain to medical stay including imaging/notes/labs from previous visits. Active Medications Active Medications: Medications Generic Name Dose Route Start Last Admin Trade Name Freq PRN Reason Stop Dose Admin Acetaminophen 650 mg 10/26/22 13:49 Acetaminophen 325 Mg Tablet PO Q4H PRN Mild Pain Hydrocodone Bitart/Acetaminophen 1 tab 10/26/22 13:49 10/27/22 06:00 Hydrocodone Bit/Acetaminophen 7.5/325 Mg Tablet PO 1 tab Q4HR PRN Administration MODERATE PAIN Aspirin 81 mg 10/27/22 08:30 Aspirin 81 Mg Tablet. PO DAILYWM [facility] Atorvastatin Calcium 80 mg 10/27/22 09:00 Atorvastatin Calcium 20 Mg Tablet PO DAILY [facility] Bisacodyl 5 mg 10/26/22 14:25 10/26/22 14:54 Bisacodyl 5 Mg Tablet. PO 5 mg DAILY PRN Administration Constipation Carvedilol 6.25 mg 10/26/22 17:00 10/26/22 18:05 Carvedilol 6.25 Mg Tablet PO 6.25 mg BIDWM MÓNICA Administration Duloxetine HCl 30 mg 10/26/22 21:00 10/26/22 20:13 Duloxetine Hcl 30 Mg Capsule. PO 30 mg TID MÓNICA Administration Enoxaparin Sodium 30 mg 10/27/22 09:00 Enoxaparin Sodium 30 Mg/0.3 Ml Syr SUBCUT DAILY [facility] Gabapentin 300 mg 10/26/22 21:00 10/26/22 20:13 Gabapentin 300 Mg Capsule PO 300 mg TID MÓNICA Administration HCTZ/Losartan Potassium 2 tab 10/27/22 09:00 Losartan/Hydrochlorothiazide 50/12.5 Mg Tab PO DAILY [facility] Sodium Chloride 1,000 mls @ 100 mls/hr 10/26/22 14:30 10/27/22 00:57 Sodium Chloride IV 100 mls/hr .Q10H MÓNICA Administration Levothyroxine Sodium 50 mcg 10/27/22 06:00 10/27/22 05:56 Levothyroxine Sodium 50 Mcg Tablet PO 50 mcg 0600 MÓNICA Administration Morphine Sulfate 4 mg 10/26/22 14:19 10/26/22 20:01 Morphine Sulfate 4 Mg/Ml Syringe IVP 4 mg Q6H PRN Administration Severe Pain Nabumetone 500 mg 10/26/22 17:00 10/26/22 18:06 Nabumetone 500 Mg Tablet PO 500 mg BIDWM MÓNICA Administration Nitrofurantoin Macrocrystals 100 mg 10/26/22 21:00 10/26/22 20:13 Nitrofurantoin Macrocrystal 50 Mg Capsule PO 12/04/22 20:59 100 mg BEDTIME MÓNICA Administration Ondansetron HCl 4 mg 10/26/22 13:49 Ondansetron Hcl/Pf 4 Mg/2 Ml Sdv IVP Q6H PRN Nausea / Vomiting Pantoprazole Sodium 40 mg 10/27/22 06:30 10/27/22 05:57 Pantoprazole Sodium 40 Mg Tablet. PO 40 mg BIDAC MÓNICA Administration Sodium Chloride 1 gm 10/27/22 09:00 Sodium Chloride 1 Gm Tablet PO BID MÓNICA Tizanidine HCl 4 mg 10/27/22 08:50 Tizanidine Hcl 4 Mg Tablet PO BID PRN Spasms Plan Plan: 1. Intractable pain in setting of fracture of the pubic rami, sacrum, and S1-S4 - continue home norco Q6H prn for pain, morphine 4 mg Q4H prn for severe pain, ER provider spoke with Xander DE LA FUENTE for Dr. Linwood ba and reported that no intervention needed for fractures, PT/OT to consult/eval, montoya catheter placed for ease of pain control d/t movement, adding zanaflex additionally. 2. Hyponatremia - improving, receiving IVF, started on salt tabs BID, checking urine sodium and creatinine 3. Hypokalemia - resolved, monitor CMP 4. Hypertension - chronic, stable, continue home medications 5. Hyperlipidemia - chronic, stable, continue home medications 6. GERD - chronic, continue home medications 7. Anxiety/Depression - continue home medications DVT: Lovenox Admitting to inpatient due to lack of pain control and need for extended stay Review Statement Review Statement: I have personally discussed and reviewed the patient's visit/currently labs/imaging/decision making with Dr. Hernandez, my supervising attending. Greater that 50 minutes spent with patient, 50% of the time spent with this patient was devoted to counseling and coordination of care.
[2022-10-27] MEDS: ZANAFLEX PO PRN ×2 (09:38→17:24)
[2022-10-27] MEDS: MORPHINE 4 MG/ML SYRINGE IVP PRN ×2 (11:01→15:57)
--- NOTE | 2022-10-27 13:07 | RS.PTINEVL ---
Subjective Patient information Date of Evaluation: 10/27/22 Date of Arrival on Unit: 10/26/22 Admitted From:: Home Diagnosis: Pelvic fractures, s/p fall, gait difficulty Usual Living Arrangement: With Spouse Living Arrangement Comments: lives with , has 3 daughters 1 is an OT, 2 are RN. Home Environment: House, Stairs (few) and Rail Medical History: Hypertension and Cancer (breast) Medical History Comments:: thoracic compression fx, anxiety, GERD, neuropathy, currently: comminuted and displaced L sup and inf pubic rami fx through pubic symphysis, comminuted insufficiency fx of sacrum B sacral ALA transverse midline at S2 S3 LATEX ALLERGY?: No Surgical History: Cholecystectomy, Tonsillectomy, CABG and Mastectomy Surgical History Comments:: appey, ankle sx. Medications: see chart Subjective Information/ Patient Comments:: pt states that she is hurting. States that her daughter wanted her to walk without her walker and she fell. pt is anxious regarding getting out of bed. 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 Pain Assessement Location pelvis and sacrum: Description: Sharp and Aching Intensity: 6 (at rest ) Pain Behavior: Moaning, Crying, Guarding, Rubbing Site and Facial Grimacing Pain Aggravating Factors: Changing Position, Exercise/Activity, Standing, Sitting and Walking Pain Alleviating Factors: Medication Interventions Objective Patient Orientation: Person, Place, Time and Situation Current Interventions: IV's and Puente Catheter Observation: bandage in place on L knee Range of Motion ROM Right Upper Extremity AROM: WFL's Left Upper Extremity AROM: WFL's Right Lower Extremity AROM: Slight limitation Left Lower Extremity AROM: Slight limitation Comments:: BLE WFL's knees and ankles, hips limited due to pelvic fx Muscle Strength Muscle Strength Right Upper Extremity: Mild Weakness (grossly 4/5 ) Left Upper Extremity: Mild Weakness (grossly 4/5 ) Right Lower Extremity: Mild Weakness (hip flex 3-/5, knee flex/ext 3+/5, ankle DF/PF 4-/5) Left Lower Extremity: Mild Weakness (hip flex 3-/5, knee flex/ext 3+/5, ankle DF/PF 4-/5) Sensation Sensation Right Upper Extremity: Intact/Normal Left Upper Extremity: Intact/Normal Right Lower Extremity: Impaired Left Lower Extremity: Impaired Comments: reports neuropathy in BLE occasionally Palpation Palpation Findings: Tenderness (L knee, tailbone) Balance Sitting Balance and Reactions Static Sitting Balance: Fair Dynamic Sitting Balance: Fair (fair-) Standing Balance and Reactions Static Standing Balance: Poor Dynamic Standing Balance: Poor Standing Equilibrium Reactions: Delayed Left and Delayed Right Standing Protective Reactions: Delayed Left and Delayed Right Functional Mobility Bed Mobility Rolling R/L: Min Assist, Mod Assist and 1 person assist Scooting: Mod Assist and 2 person assist Supine to Sit: Mod Assist and 1 person assist Transfers Sit to Stand: Min Assist and 2 person assist Stand to Sit: Min Assist and 1 person assist Safety Awareness Safety Awareness: Fair NEHA INDEX SCORE: n/a Ambulation Ambulation Weight Bearing Status: WBAT Assistive Device Used: Rolling Walker Orthotic/Prosthetic Device: No Distance: 5ft Assistance needed with Ambulation: Min Assist and 1 person assist Gait Deviations: Step-to gait, Forward posture and Short stride Ambulation Comments: pt also with decreased step height. Requires step by step cues to push with UE and placement of rwx. Factors Affecting Ambulation: Decreased Balance, Pain, Weakness, Decreased Coordination, Decreased ROM, Decreased Safety and Limited Endurance Treatment time Time with patient Length of Evaluation: 21 Total treatment time: 34 Patient Education Education Patient Education: Activity Modification and Education of Plan of Care Teaching Recipient: Patient Teaching Methods: Discussion Assessment Assessment Problem List:: Decreased level of function, Requires training/education, D ecreased safety/Risk of falls, Weakness and Pain limits previous level of function Rehab Potential: Good Further Therapy Indicated?: Yes Candidate for Swing Bed for Therapy Services?: Feel pt would be a good candidate for swing bed for therapy to improve functional mobility and decrease fall risk. Evaluation Complexity: HISTORY: Medium, EXAM OF BODY SYSTEMS: Medium, CLINICAL PRESENTATION: Medium and CLINICAL DECISION MAKING: Medium Patient's Goal(s): decrease pain and be able to walk on my own Short Term Goals GOAL #1: pt demonstrate rolling and scooting with verbal cues and use of bedrails. Goal to be met by: 10/31/22 GOAL #2: Transfer sup to/from sit min x 1 Goal to be met by: 10/31/22 GOAL #3: Transfer sit to/from stand CGA Goal to be met by: 10/31/22 GOAL #4: pt amb 50ft with rwx with CGA x 1 Goal to be met by: 10/31/22 GOAL #5: Improve dyn sitting balance fair+ Goal to be met by: 10/31/22 Fdc Goals GOAL #1: pt transfer sup to/from sit to/from stand CGA to SBA Goal to be met by: 11/02/22 GOAL #2: pt amb functional household distances with rwx CGA x 1 Goal to be met by: 11/02/22 GOAL #3: Improve BLE strength 4 to 4+/5 Goal to be met by: 11/02/22 Plan Plan of Care: Therapeutic EX and Therapeutic Activity Other:: gait training Frequency of Treatment: 1-2 X day, as tolerated Duration of Treatment: 1 Week Anticipated Discharge Destination: swing bed Treatment Diagnosis (ICD 10 Codes): gait difficulty R 26.2 impaired balance R 26.81 weakness M62.81 falls R 29.6 Has the Physician been added for Co-signature?: Yes
[2022-10-27 15:22] LABS: BILIRUBIN,URINE Negative (NEGATIVE); CLARITY,URINE Clear (CLEAR); COLOR,URINE Yellow (YELLOW); GLUCOSE, URINE (UA) Negative (NEGATIVE); KETONES,URINE Negative (NEGATIVE); LEUKOCYTE ESTERASE ,URINE 1+ (NEGATIVE); NITRITE,URINE Negative (NEGATIVE); PH,URINE 5.5 (5-9); PROTEIN,URINE Negative (NEGATIVE); URINE, BLOOD Trace-intact (NEGATIVE); UROBILINOGEN,URINE 0.2 (0.2)
[2022-10-27 15:37] LABS: TRANSITIONAL EPI CELLS,URINE 0-2 (NOT PRESENT); TRIPLE PHOSPHATE CRYSTAL,UR 1+ (NOT PRESENT); URINE RBC, MICROSCOPIC 0-2 (0-2)
[2022-10-27 15:38] LABS: BACTERIA,URINE TRACE (NOT PRESENT)
--- NOTE | 2022-10-27 16:34 | RS.OTINEVL ---
Subjective Patient information Date of Evaluation: 10/27/22 Date of Arrival on Unit: 10/26/22 Admitted From:: Home Diagnosis: Pelvic fracture PRECAUTIONS: Fall risk, Increased pain Usual Living Arrangement: With Spouse Living Arrangement Comments: lives with , has 3 daughters 1 is an OT, 2 are RN. Home Environment: House, Stairs (few) and Rail Medical History: Hypertension and Cancer (breast) Medical History Comments:: thoracic compression fx, anxiety, GERD, neuropathy, currently: comminuted and displaced L sup and inf pubic rami fx through pubic symphysis, comminuted insufficiency fx of sacrum B sacral ALA transverse midline at S2 S3 LATEX ALLERGY?: No Surgical History: Cholecystectomy, Tonsillectomy, CABG and Mastectomy Surgical History Comments:: appey, ankle sx. Medications: see chart Subjective Information/ Patient Comments:: Pt reported, don't make me do more. 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 Current Equipment Used at Home: rolling wx and wheelchair. Pain Assessment Pain Pain Score: 8 Side: bilateral Pain Location Body Site: Pelvis Pain Aggravating Factors: ADL's, Changing Position, Standing, Sitting and Walking Pain Alleviating Factors: Medication, Position Change and Lying Supine Interventions Objective Patient Orientation: Person, Place, Time and Situation Current Interventions: IV's and Puente Catheter Observation: Pt is weak and requires moderate assistance with bed mobility. Pt will participate and follow verbal cues. Pt using her arms to help her with her transfers. Interventions ROM Right Upper Extremity AROM: WFL's Left Upper Extremity AROM: WFL's Comments: Pt reports her arms are weak. Strength Right Upper Extremity: Mild Weakness Left Upper Extremity: Mild Weakness Sensation Right Upper Extremity: Intact/Normal Left Upper Extremity: Intact/Normal Balance Sitting Balance Static Sitting Balance: Fair Dynamic Sitting Balance: Fair Standing Balance Static Standing Balance: Poor Dynamic Standing Balance: Poor ADL Skills Self Feeding Self Feeding: Independent Grooming Grooming: Min Assist Grooming Set-up: Sitting Bathing Bathing UE: Mod Assist Bathing LE: Max Assist Bathing Set-up: Bedside Dressing Dressing UE: Mod Assist Dressing LE: Max Assist Toilet Management Toilet Hygiene: Mod Assist Toilet Clothing Management: Mod Assist Functional Mobility Bed Mobility Rolling R/L: Mod Assist Scooting: Min Assist Supine to Sit: Mod Assist and 2 person assist Sit to Supine: Mod Assist Transfers Sit to Stand: Mod Assist and 2 person assist Stand to Sit: Mod Assist and 2 person assist Stand Pivot Transfers: Mod Assist and 2 person assist Ambulation Weight Bearing Status: FWB Assistive Device Used: Rolling Walker Orthotic/Prosthetic Device: No Assistance needed with Ambulation: Min Assist, 2 person assist and Verbal Cues Safety Awareness Safety Awareness: Fair NEHA INDEX SCORE: . Additional Treatment Performed Additional units charged ADL: 15 Time with patient Length of Evaluation: 18 Total treatment time: 33 Activities Do you enjoy playing games?: Yes Would you be interested in leaving your room for activities?: Yes Would you enjoy group activities?: Yes Do you have difficulty with your vision?: No Patient Interests:: Watching Television and Visiting/Socializing Patient Education Patient Education: Body/Joint mechanics, Home Exercise Program, Home Safety and Education of Plan of Care Teaching Recipient: Patient Teaching Methods: Discussion and Demonstration Assessment Problem List:: Decreased level of function, Requires training/education, Decreased safety/Risk of falls, Weakness and Pain limits previous level of function Rehab Potential: Good Further Therapy Indicated?: Yes Candidate for Swing Bed for Therapy Services?: yes Evaluation Complexity: HISTORY: Medium, EXAM OF BODY SYSTEMS: Medium and CLINICAL DECISION MAKING: Medium Patient's Goal(s): Pt wishes to get better and be able to get to go home. Short Term Goals Goals GOAL 1: Pt to be able to complete sink level ADLS with min A. Goal to be met by: 11/01/22 GOAL 2: Pt to increase BUE strength to 4+/5. Goal to be met by: 11/01/22 GOAL 3: Pt to increase independence of toilet transfer to CGA. Goal to be met by: 11/01/22 Group Home Goals GOAL 1: Pt to increase to I of ADLS. Goal to be met by: 11/02/22 GOAL 2: Pt to increase BUE strength to 5/5. Goal to be met by: 11/02/22 Plan Plan of Care: Therapeutic EX, Therapeutic Activity and Self-Care/Home Management Frequency of Treatment: 1-2 X day, as tolerated Duration of Treatment: 1 Week Anticipated Discharge Destination: Swing bed Treatment Diagnosis (ICD 10 Codes): Weakness R53.1, Z74.1 Need for assistance with personal care. Has the Physician been added for Co-signature?: Yes
[2022-10-27] MEDS: MACRODANTIN PO SCH (20:20)
[2022-10-28] MEDS: NORCO 7.5-325 PO PRN ×5 (02:35→21:04)
[2022-10-28 03:16] LABS: CREATININE, URINE 97.9 mg/dL (Not Estab.)
[2022-10-28 05:11] LABS: BASOPHILS % (AUTO) 0.2 % (0.0-3.0); EOSINOPHILS # (AUTO) 0.3 K/ul (0.0-0.7); EOSINOPHILS % (AUTO) 6.9 % (0.0-7.0); HEMATOCRIT 24.4 % (37.0-47.0); HEMOGLOBIN 7.7 g/dl (12.0-16.0); IMMATURE GRANULOCYTE % (AUTO) 0.4 % (0.0-5.0); LYMPHOCYTES # (AUTO) 1.4 K/uL (0.60-3.4); LYMPHOCYTES % (AUTO) 30.1 (10.0-50.0); MEAN CORPUSCULAR HEMOGLOBIN 29.6 pg (27.0-31.0); MEAN CORPUSCULAR HGB CONC 31.6 (31.8-35.4); MEAN CORPUSCULAR VOLUME 93.8 fl (81.0-99.0); MONOCYTES # (AUTO) 0.4 K/uL (0.4-2.0); MONOCYTES % (AUTO) 8.6 (0-10); NEUTROPHILS # (AUTO) 2.6 K/ul (2.0-6.9); NEUTROPHILS % (AUTO) 53.8 % (42.2-75.2); PLATELET COUNT 269 10^3/uL (140-440); RDW COEFFICIENT OF VARIATION 14.5 % (11.6-14.8); WHITE BLOOD COUNT 4.75 K/ul (4.6-10.2)
[2022-10-28 05:26] LABS: ALANINE AMINOTRANSFERASE 15.7 U/L (0-35); ALBUMIN 2.69 g/dL (3.5-5.0); ALKALINE PHOSPHATASE 270.5 U/L (53-141); BILIRUBIN,TOTAL 0.5 mg/dL (0.2-1.3); BLOOD UREA NITROGEN 17.8 mg/dL (7-17); CALCIUM 7.69 mg/dL (8.4-10.2); CARBON DIOXIDE 26.8 mmol/L (22-30.0); CHLORIDE 107.1 mmol/L (98-107); CREATININE 0.72 mg/dL (0.60-1.30); GLUCOSE 98.9 mg/dL (74-106); MAGNESIUM 2.2 mg/dL (1.6-2.3); POTASSIUM 3.74 mmol/L (3.5-5.1); SODIUM 133.3 mmol/L (134.5-145); TOTAL PROTEIN 5.41 g/dL (6.3-8.2)
[2022-10-28] MEDS: SYNTHROID PO SCH (06:14)
[2022-10-28] MEDS: PROTONIX PO SCH ×2 (06:15→16:53)
[2022-10-28] MEDS: SODIUM CHLORIDE 1,000 ML IV SCH (06:15)
[2022-10-28] MEDS: COREG PO SCH ×2 (08:51→16:53)
[2022-10-28] MEDS: ASPIRIN EC PO SCH (08:51)
[2022-10-28] MEDS: LIPITOR PO SCH (08:52)
[2022-10-28] MEDS: SODIUM CHLORIDE PO SCH ×2 (08:52→20:54)
[2022-10-28] MEDS: RELAFEN PO SCH ×2 (08:52→16:52)
[2022-10-28] MEDS: CYMBALTA PO SCH ×3 (08:52→20:55)
[2022-10-28] MEDS: NEURONTIN PO SCH ×3 (08:52→20:55)
[2022-10-28] MEDS: HYZAAR 50-12.5 MG TAB PO SCH (08:53)
[2022-10-28] MEDS: LOVENOX SUBCUT SCH (08:54)
[2022-10-28] MEDS: ZANAFLEX PO PRN (09:01)
[2022-10-28] MEDS: DULCOLAX PO PRN (09:01)
[2022-10-28] MEDS: MORPHINE 4 MG/ML SYRINGE IVP PRN (09:27)
[2022-10-28] MEDS ORDERED: DULCOLAX RC PRN (09:36)
[2022-10-28] MEDS ORDERED: RELISTOR SUBCUT PRN ×2 (09:36→10:00)
[2022-10-28] MEDS ORDERED: MORPHINE 4 MG/ML SYRINGE IVP PRN (09:38)
--- NOTE | 2022-10-28 09:46 | PCM.PROG ---
Date/Time Seen Date Seen by Provider: 10/28/22 Time Seen by Provider: 09:00 Provider Provider: [facility]LD[facility] Chief Complaint Chief Complaint: PELVIC FRACTURE, PAIN CONTROL Subjective Subjective: No events overnight. Pain better controlled. has not required morphine since yesterday afternoon. Objective Appearance: Positive Well-appearing, Well-nourished, No Apparent Distress and Alert and Oriented x3 Chest/Lungs: Positive Symmetrical With Equal Breath Sounds, Clear to Auscultation Bilaterally and Good Air Movement all 4 Lung [place] Heart: Positive RRR, Pulses Normal, No S3 Auscultated and No S4 Auscultated GI/: Positive Soft, Nontender, Bowel Sounds Normal, No Distention and No Organomegaly Musculoskeletal: Positive Not Examined Neurological: Positive Sensation Intact, Motor intact, Reflexes Intact, Alert and Oriented Vital Signs Vital Signs: Vital Signs: Last 24 Hours 10/27/22 10:00 10/27/22 14:00 10/27/22 20:00 Temperature 96.1 F L 95.9 F L Temperature Source Temporal Artery Scan Temporal Artery Scan Pulse Rate 84 72 Respiratory Rate 14 16 Blood Pressure 99/66 100/68 Blood Pressure Mean 77 78 Blood Pressure Location Left Arm Left Arm Blood Pressure Position Supine Supine O2 Sat by Pulse Oximetry 96 98 Oxygen Delivery Method Room Air Room Air Room Air Height Weight 10/27/22 21:06 10/27/22 23:45 10/28/22 02:54 Temperature 96.9 F L Temperature Source Temporal Artery Scan Pulse Rate 64 Respiratory Rate 18 Blood Pressure 77/47 L 100/60 114/76 Blood Pressure Mean 57 73 88 Blood Pressure Location Right Arm Right Arm Right Arm Blood Pressure Position Supine Supine Supine O2 Sat by Pulse Oximetry 95 Oxygen Delivery Method Room Air Room Air Room Air Height Weight 10/28/22 05:30 10/28/22 08:13 Temperature 97.0 F L Temperature Source Temporal Artery Scan Pulse Rate 73 Respiratory Rate 16 Blood Pressure 137/74 Blood Pressure Mean 95 Blood Pressure Location Right Arm Blood Pressure Position Supine O2 Sat by Pulse Oximetry 97 Oxygen Delivery Method Room Air Height 5 ft Weight 139 lb Lab Results Lab Results: Lab Results: Last 24 Hours 10/28/22 10/27/22 04:50 11:00 WBC 4.75 RBC 2.60 L Hgb 7.7 L Hct 24.4 L MCV 93.8 MCH 29.6 MCHC 31.6 L RDW Coeff of Ramon 14.5 Plt Count 269 Immature Gran % (Auto) 0.4 Neut % (Auto) 53.8 Lymph % (Auto) 30.1 [place] % (Auto) 8.6 Eos % (Auto) 6.9 Baso % (Auto) 0.2 Neut # (Auto) 2.6 Lymph # (Auto) 1.4 [place] # (Auto) 0.4 Eos # (Auto) 0.3 Baso # (Auto) 0.0 Immature Gran # (Auto) 0.0 Sodium 133.3 L Potassium 3.74 Chloride 107.1 H Carbon Dioxide 26.8 Anion Gap 3.14 BUN 17.8 H Creatinine 0.72 Estimated GFR (MDRD) 79.00 BUN/Creatinine Ratio 24.72 Glucose 98.9 Calcium 7.69 L Magnesium 2.20 Total Bilirubin 0.50 AST 21.0 ALT 15.7 Alkaline Phosphatase 270.5 H D Total Protein 5.41 L Albumin 2.69 L Globulin 2.72 Albumin/Globulin Ratio 0.98 Urine Color Yellow Urine Clarity Clear Urine pH 5.5 Ur Specific [place] 1.015 Urine Protein Negative Urine Glucose (UA) Negative Urine Ketones Negative Urine Blood Trace-intact H Urine Nitrite Negative Urine Bilirubin Negative Urine Urobilinogen 0.2 Ur Leukocyte Esterase 1+ H Urine Microscopic RBC 0-2 Urine Microscopic WBC 5-10 Ur Squamous Epith Cells 2-5 Ur Transition Epith Cell 0-2 Triple Phos Crystals 1+ Urine Bacteria Trace Ur Random Sodium 25 Urine Creatinine 97.9 Additional Comments Additional Comments: I have independently reviewed and interpreted the labs/EKGs/imaging ordered during this hospital stay. I have reviewed outside records that are available in our EMR that pertain to medical stay including imaging/notes/labs from previous visits. Active Medications Active Medications: Medications Generic Name Dose Route Start Last Admin Trade Name Freq PRN Reason Stop Dose Admin Acetaminophen 650 mg 10/26/22 13:49 Acetaminophen 325 Mg Tablet PO Q4H PRN Mild Pain Hydrocodone Bitart/Acetaminophen 1 tab 10/26/22 13:49 10/28/22 06:14 Hydrocodone Bit/Acetaminophen 7.5/325 Mg Tablet PO 1 tab Q4HR PRN Administration MODERATE PAIN Aspirin 81 mg 10/27/22 08:30 10/28/22 08:51 Aspirin 81 Mg Tablet. PO 81 mg DAILYWM MÓNICA Administration Atorvastatin Calcium 80 mg 10/27/22 09:00 10/28/22 08:52 Atorvastatin Calcium 20 Mg Tablet PO 80 mg DAILY MÓNICA Administration Bisacodyl 5 mg 10/26/22 14:25 10/28/22 09:01 Bisacodyl 5 Mg Tablet. PO 5 mg DAILY PRN Administration Constipation Carvedilol 6.25 mg 10/26/22 17:00 10/28/22 08:51 Carvedilol 6.25 Mg Tablet PO 6.25 mg BIDWM MÓNICA Administration Duloxetine HCl 30 mg 10/26/22 21:00 10/28/22 08:52 Duloxetine Hcl 30 Mg Capsule. PO 30 mg TID MÓNICA Administration Enoxaparin Sodium 30 mg 10/27/22 09:00 10/28/22 08:54 Enoxaparin Sodium 30 Mg/0.3 Ml Syr SUBCUT 30 mg DAILY MÓNICA Administration Gabapentin 300 mg 10/26/22 21:00 10/28/22 08:52 Gabapentin 300 Mg Capsule PO 300 mg TID MÓNICA Administration HCTZ/Losartan Potassium 2 tab 10/27/22 09:00 10/28/22 08:53 Losartan/Hydrochlorothiazide 50/12.5 Mg Tab PO 2 tab DAILY MÓNICA Administration Levothyroxine Sodium 50 mcg 10/27/22 06:00 10/28/22 06:14 Levothyroxine Sodium 50 Mcg Tablet PO 50 mcg 0600 MÓNICA Administration Morphine Sulfate 4 mg 10/27/22 09:35 10/28/22 09:27 Morphine Sulfate 4 Mg/Ml Syringe IVP 4 mg Q4H PRN Administration Severe Pain Nabumetone 500 mg 10/26/22 17:00 10/28/22 08:52 Nabumetone 500 Mg Tablet PO 500 mg BIDWM MÓNICA Administration Nitrofurantoin Macrocrystals 100 mg 10/26/22 21:00 10/27/22 20:20 Nitrofurantoin Macrocrystal 50 Mg Capsule PO 12/04/22 20:59 100 mg BEDTIME MÓNICA Administration Ondansetron HCl 4 mg 10/26/22 13:49 Ondansetron Hcl/Pf 4 Mg/2 Ml Sdv IVP Q6H PRN Nausea / Vomiting Pantoprazole Sodium 40 mg 10/27/22 06:30 10/28/22 06:15 Pantoprazole Sodium 40 Mg Tablet. PO 40 mg BIDAC MÓNICA Administration Sodium Chloride 1 gm 10/27/22 09:00 10/28/22 08:52 Sodium Chloride 1 Gm Tablet PO 1 gm BID MÓNICA Administration Tizanidine HCl 4 mg 10/27/22 08:50 10/27/22 17:24 Tizanidine Hcl 4 Mg Tablet PO 4 mg BID PRN Administration Spasms Plan Plan: 1. Intractable pain in setting of fracture of the pubic rami, sacrum, and S1-S4 - pain improving, continue home norco Q6H prn for pain, zanaflex bid prn, decreasing morphine dose to 2 mg from 4 mg - Q4H prn for break through pain, weaning off IV meds in prep for swingbed program, ER provider spoke with Xander DE LAF UENTE for Dr. Linwood ba and reported that no intervention needed for fractures, PT/OT eval completed - continue therapy, montoya catheter placed for ease of pain control d/t movement - d/c montoya when tolerating bedside commode use 2. Hyponatremia - improving, received IVF, started on salt tabs BID yesterday, urine sodium and creatinine normal 3. Hypokalemia - resolved, monitor CMP 4. Anemia - patient says is chronic, likely dilution from IVF and hematoma in sacrum, no signs of active bleeding noted, iron normal, monitor cbc 5. Hypertension - chronic, stable, continue home medications 6. Hyperlipidemia - chronic, stable, continue home medications 7. GERD - chronic, continue home medications 8. Anxiety/Depression - continue home medications DVT: Lovenox Review Statement Review Statement: I have personally discussed and reviewed the patient's visit/currently labs/imaging/decision making with Dr. Hernandez, my supervising attending. Greater that 50 minutes spent with patient, 50% of the time spent with this patient was devoted to counseling and coordination of care.
[2022-10-28] MEDS ORDERED: MORPHINE 2 MG/ML SYRINGE IVP PRN (09:57)
[2022-10-28 17:35] LABS: OCCULT BLOOD SAMPLE 1 POSITIVE (NEGATIVE); OCCULT BLOOD SAMPLE 2 NO SPECIMEN RECEIVED (NEGATIVE); OCCULT BLOOD SAMPLE 3 NO SPECIMEN RECEIVED (NEGATIVE)
[2022-10-28] MEDS: COLACE PO SCH (20:54)
[2022-10-28] MEDS: MACRODANTIN PO SCH (20:55)
[2022-10-29 05:02] LABS: BASOPHILS % (AUTO) 0.2 % (0.0-3.0); EOSINOPHILS # (AUTO) 0.4 K/ul (0.0-0.7); EOSINOPHILS % (AUTO) 8.8 % (0.0-7.0); HEMATOCRIT 26.4 % (37.0-47.0); HEMOGLOBIN 8.3 g/dl (12.0-16.0); IMMATURE GRANULOCYTE % (AUTO) 0.2 % (0.0-5.0); LYMPHOCYTES # (AUTO) 1.4 K/uL (0.60-3.4); LYMPHOCYTES % (AUTO) 28.5 (10.0-50.0); MEAN CORPUSCULAR HEMOGLOBIN 29.5 pg (27.0-31.0); MEAN CORPUSCULAR HGB CONC 31.4 (31.8-35.4); MONOCYTES # (AUTO) 0.4 K/uL (0.4-2.0); MONOCYTES % (AUTO) 7.3 (0-10); NEUTROPHILS # (AUTO) 2.6 K/ul (2.0-6.9); PLATELET COUNT 294 10^3/uL (140-440); RDW COEFFICIENT OF VARIATION 14.5 % (11.6-14.8); RED BLOOD COUNT 2.81 10^6/ul (4.20-5.40)
[2022-10-29] MEDS: SYNTHROID PO SCH (05:10)
[2022-10-29] MEDS: PROTONIX PO SCH ×2 (05:10→16:23)
[2022-10-29 05:12] LABS: ALANINE AMINOTRANSFERASE 16.7 U/L (0-35); ALBUMIN 2.98 g/dL (3.5-5.0); ALKALINE PHOSPHATASE 295.1 U/L (53-141); ASPARTATE AMINO TRANSFERASE 26.6 U/L (14-36); BILIRUBIN,TOTAL 0.5 mg/dL (0.2-1.3); BLOOD UREA NITROGEN 13.6 mg/dL (7-17); CALCIUM 8.36 mg/dL (8.4-10.2); CHLORIDE 106.7 mmol/L (98-107); CREATININE 0.81 mg/dL (0.60-1.30); GLUCOSE 97.6 mg/dL (74-106); POTASSIUM 3.98 mmol/L (3.5-5.1); SODIUM 135.3 mmol/L (134.5-145); TOTAL PROTEIN 5.81 g/dL (6.3-8.2)
[2022-10-29] MEDS: NORCO 7.5-325 PO PRN ×4 (05:24→20:27)
[2022-10-29] MEDS: NEURONTIN PO SCH ×3 (08:36→20:27)
[2022-10-29] MEDS: ASPIRIN EC PO SCH (08:36)
[2022-10-29] MEDS: LIPITOR PO SCH (08:36)
[2022-10-29] MEDS: SODIUM CHLORIDE PO SCH ×2 (08:37→20:27)
[2022-10-29] MEDS: COLACE PO SCH ×2 (08:37→20:27)
[2022-10-29] MEDS: RELAFEN PO SCH ×2 (08:37→16:23)
[2022-10-29] MEDS: CYMBALTA PO SCH ×3 (08:37→20:26)
[2022-10-29] MEDS: COREG PO SCH ×2 (08:37→16:23)
[2022-10-29] MEDS: ZANAFLEX PO PRN ×2 (08:38→20:28)
[2022-10-29] MEDS: HYZAAR 50-12.5 MG TAB PO SCH (08:38)
[2022-10-29] MEDS: LOVENOX SUBCUT SCH (08:38)
[2022-10-29] MEDS ORDERED: NEOSPORIN OINT 0.9 GM PACKET TP SCH (09:00)
[2022-10-29] MEDS ORDERED: NEOSPORIN TP SCH (09:30)
--- NOTE | 2022-10-29 09:47 | PCM.PROG ---
Date/Time Seen Date Seen by Provider: 10/29/22 Time Seen by Provider: 09:15 Provider Provider[facility] Chief Complaint Chief Complaint: PELVIC FRACTURE, PAIN CONTROL Objective Appearance: Positive Well-appearing, Well-nourished, No Apparent Distress and Alert and Oriented x3 Chest/Lungs: Positive Symmetrical With Equal Breath Sounds, Clear to Auscultation Bilaterally and Good Air Movement all 4 Lung [place] Heart: Positive RRR and Pulses Normal GI/: Positive Soft, Nontender, Bowel Sounds Normal, No Distention and No Organomegaly Musculoskeletal: Positive Not Examined Neurological: Positive Sensation Intact, Motor intact, Alert and Oriented Additional Findings: Skin tear to left knee: healing, no foul odor or discharge Vital Signs Vital Signs: Vital Signs: Last 24 Hours 10/28/22 14:00 10/28/22 20:00 10/28/22 21:31 Temperature 97.8 F 97.1 F L Temperature Source Temporal Artery Scan Oral Pulse Rate 70 70 Respiratory Rate 16 18 Blood Pressure 102/50 L 105/67 Blood Pressure Mean 67 79 Blood Pressure Location Left Arm Left Arm Blood Pressure Position Sitting Supine O2 Sat by Pulse Oximetry 97 98 Oxygen Delivery Method Room Air Room Air Room Air 10/29/22 05:32 10/29/22 07:56 Temperature 97.1 F L Temperature Source Oral Pulse Rate 74 Respiratory Rate 16 16 Blood Pressure 146/76 H Blood Pressure Mean 99 Blood Pressure Location Left Arm Blood Pressure Position Supine O2 Sat by Pulse Oximetry 99 Oxygen Delivery Method Room Air Room Air Lab Results Lab Results: Lab Results: Last 24 Hours 10/29/22 10/28/22 04:50 17:15 WBC 4.80 RBC 2.81 L Hgb 8.3 L Hct 26.4 L MCV 94.0 MCH 29.5 MCHC 31.4 L RDW Coeff of Ramon 14.5 Plt Count 294 Immature Gran % (Auto) 0.2 Neut % (Auto) 55.0 Lymph % (Auto) 28.5 [place] % (Auto) 7.3 Eos % (Auto) 8.8 H Baso % (Auto) 0.2 Neut # (Auto) 2.6 Lymph # (Auto) 1.4 [place] # (Auto) 0.4 Eos # (Auto) 0.4 Baso # (Auto) 0.0 Immature Gran # (Auto) 0.0 Sodium 135.3 Potassium 3.98 Chloride 106.7 Carbon Dioxide 28.0 Anion Gap 4.58 BUN 13.6 Creatinine 0.81 Estimated GFR (MDRD) 69.00 BUN/Creatinine Ratio 16.79 Glucose 97.6 Calcium 8.36 L Total Bilirubin 0.50 AST 26.6 ALT 16.7 Alkaline Phosphatase 295.1 H Total Protein 5.81 L Albumin 2.98 L Globulin 2.83 Albumin/Globulin Ratio 1.05 Stl Occult Blood (IFOB) Positive Stool Occult Blood #2 No specimen received Stool Occult Blood #3 No specimen received Additional Comments Additional Comments: I have independently reviewed and interpreted the labs/EKGs/imaging ordered during this hospital stay. I have reviewed outside records that are available in our EMR that pertain to medical stay including imaging/notes/labs from previous visits. Active Medications Active Medications: Medications Generic Name Dose Route Start Last Admin Trade Name Freq PRN Reason Stop Dose Admin Acetaminophen 650 mg 10/26/22 13:49 Acetaminophen 325 Mg Tablet PO Q4H PRN Mild Pain Hydrocodone Bitart/Acetaminophen 1 tab 10/26/22 13:49 10/29/22 05:24 Hydrocodone Bit/Acetaminophen 7.5/325 Mg Tablet PO 1 tab Q4HR PRN Administration MODERATE PAIN Aspirin 81 mg 10/27/22 08:30 10/29/22 08:36 Aspirin 81 Mg Tablet. PO 81 mg DAILYWM MÓNICA Administration Atorvastatin Calcium 80 mg 10/27/22 09:00 10/29/22 08:36 Atorvastatin Calcium 20 Mg Tablet PO 80 mg DAILY MÓNICA Administration Bisacodyl 5 mg 10/26/22 14:25 10/28/22 09:01 Bisacodyl 5 Mg Tablet. PO 5 mg DAILY PRN Administration Constipation Bisacodyl 10 mg 10/28/22 09:36 10/28/22 14:08 Bisacodyl 10 Mg Supp.Rect RC 10 mg DAILY PRN Administration Constipation Carvedilol 6.25 mg 10/26/22 17:00 10/29/22 08:37 Carvedilol 6.25 Mg Tablet PO 6.25 mg BIDWM MÓNICA Administration Docusate Sodium 100 mg 10/28/22 21:00 10/29/22 08:37 Docusate Sodium 100 Mg Capsule PO 100 mg BID MÓNICA Administration Duloxetine HCl 30 mg 10/26/22 21:00 10/29/22 08:37 Duloxetine Hcl 30 Mg Capsule. PO 30 mg TID MÓNICA Administration Enoxaparin Sodium 30 mg 10/27/22 09:00 10/29/22 08:38 Enoxaparin Sodium 30 Mg/0.3 Ml Syr SUBCUT 30 mg DAILY MÓNICA Administration Gabapentin 300 mg 10/26/22 21:00 10/29/22 08:36 Gabapentin 300 Mg Capsule PO 300 mg TID MÓNICA Administration HCTZ/Losartan Potassium 2 tab 10/27/22 09:00 10/29/22 08:38 Losartan/Hydrochlorothiazide 50/12.5 Mg Tab PO 2 tab DAILY MÓNICA Administration Levothyroxine Sodium 50 mcg 10/27/22 06:00 10/29/22 05:10 Levothyroxine Sodium 50 Mcg Tablet PO 50 mcg 0600 MÓNICA Administration Methylnaltrexone [place] 12 mg 10/28/22 10:00 Methylnaltrexone [place] 12 Mg/0.6 Ml Vial SUBCUT Q48H PRN Constipation Morphine Sulfate 2 mg 10/28/22 09:57 Morphine Sulfate 2 Mg/Ml Syringe IVP Q4H PRN Severe Pain Nabumetone 500 mg 10/26/22 17:00 10/29/22 08:37 Nabumetone 500 Mg Tablet PO 500 mg BIDWM MÓNICA Administration Neomycin/Polymyxin/Bacitracin 1 applic 10/29/22 09:30 10/29/22 09:36 Neomy Sulf/Bacitra/Polymyxin B 28.4 Gm Oint TP 11/01/22 09:29 1 applic DAILY MÓNICA Administration Nitrofurantoin Macrocrystals 100 mg 10/26/22 21:00 10/28/22 20:55 Nitrofurantoin Macrocrystal 50 Mg Capsule PO 12/04/22 20:59 100 mg BEDTIME MÓNICA Administration Ondansetron HCl 4 mg 10/26/22 13:49 Ondansetron Hcl/Pf 4 Mg/2 Ml Sdv IVP Q6H PRN Nausea / Vomiting Pantoprazole Sodium 40 mg 10/29/22 06:00 10/29/22 05:10 Pantoprazole Sodium 40 Mg Tablet. PO 40 mg 0600,1600 MÓNICA Administration Sodium Chloride 1 gm 10/27/22 09:00 10/29/22 08:37 Sodium Chloride 1 Gm Tablet PO 1 gm BID MÓNICA Administration Sodium Chloride 1 syr 10/28/22 21:00 10/29/22 05:10 0.9% Sodium Chloride 10 Ml Disp.Syrin IVF 1 syr Q8HR MÓNICA Administration Tizanidine HCl 4 mg 10/27/22 08:50 10/29/22 08:38 Tizanidine Hcl 4 Mg Tablet PO 4 mg BID PRN Administration Spasms Plan Plan: 1. Intractable pain in setting of fracture of the pubic rami, sacrum, and S1-S4 - improving, continue home norco Q6H prn for pain, zanaflex bid prn, decreasing morphine dose to 2 mg from 4 mg - Q4H prn for break through pain, weaning off IV meds in prep for swingbed program, ER provider spoke with Xander DE LA FUENTE for Dr. Linwood ba and reported that no intervention needed for fractures, PT/OT eval completed - continue therapy, montoya catheter placed for ease of pain control d/t movement - d/c montoya when tolerating bedside commode use 2. Hyponatremia - resolved, received IVF initially, urine sodium and creatinine normal, salt tabs BID 3. Hypokalemia - resolved, monitor CMP 4. Anemia - improving, patient says is chronic, likely dilution from IVF and hematoma in sacrum, no signs of active bleeding noted, occult stool positive - but hemorrhoids noted per nursing staff, iron normal, VSS, monitor cbc, 5. Hypertension - chronic, stable, continue home medications 6. Hyperlipidemia - chronic, stable, continue home medications 7. GERD - chronic, continue home medications 8. Anxiety/Depression - continue home medications DVT: Lovenox Review Statement Review Statement: I have personally discussed and reviewed the patient's visit/currently labs/imaging/decision making with Dr. Hernandez, my supervising attending. Greater that 50 minutes spent with patient, 50% of the time spent with this patient was devoted to counseling and coordination of care.
[2022-10-29] MEDS: MACRODANTIN PO SCH (20:28)
[2022-10-30] MEDS: NORCO 7.5-325 PO PRN ×2 (04:51→09:21)
[2022-10-30 04:59] LABS: BASOPHILS % (AUTO) 0.2 % (0.0-3.0); EOSINOPHILS # (AUTO) 0.4 K/ul (0.0-0.7); EOSINOPHILS % (AUTO) 7.7 % (0.0-7.0); HEMATOCRIT 25.2 % (37.0-47.0); IMMATURE GRANULOCYTE % (AUTO) 0.4 % (0.0-5.0); LYMPHOCYTES # (AUTO) 1.5 K/uL (0.60-3.4); LYMPHOCYTES % (AUTO) 30.1 (10.0-50.0); MEAN CORPUSCULAR HEMOGLOBIN 29.5 pg (27.0-31.0); MEAN CORPUSCULAR HGB CONC 31.7 (31.8-35.4); MONOCYTES # (AUTO) 0.3 K/uL (0.4-2.0); MONOCYTES % (AUTO) 7.1 (0-10); NEUTROPHILS # (AUTO) 2.6 K/ul (2.0-6.9); NEUTROPHILS % (AUTO) 54.5 % (42.2-75.2); PLATELET COUNT 303 10^3/uL (140-440); RDW COEFFICIENT OF VARIATION 14.6 % (11.6-14.8); RED BLOOD COUNT 2.71 10^6/ul (4.20-5.40); WHITE BLOOD COUNT 4.81 K/ul (4.6-10.2)
[2022-10-30 05:01] VITALS: BP 150/76; PULSE 70; RESP 16; TEMP 97.1
[2022-10-30 05:13] LABS: ALANINE AMINOTRANSFERASE 18.8 U/L (0-35); ALBUMIN 2.96 g/dL (3.5-5.0); ALKALINE PHOSPHATASE 292.2 U/L (53-141); ASPARTATE AMINO TRANSFERASE 25.2 U/L (14-36); BILIRUBIN,TOTAL 0.45 mg/dL (0.2-1.3); BLOOD UREA NITROGEN 15.4 mg/dL (7-17); CALCIUM 8.49 mg/dL (8.4-10.2); CARBON DIOXIDE 30.1 mmol/L (22-30.0); CHLORIDE 104.5 mmol/L (98-107); CREATININE 0.76 mg/dL (0.60-1.30); GLUCOSE 92.3 mg/dL (74-106); POTASSIUM 3.9 mmol/L (3.5-5.1); SODIUM 135.6 mmol/L (134.5-145); TOTAL PROTEIN 5.88 g/dL (6.3-8.2)
[2022-10-30] MEDS: SYNTHROID PO SCH (05:30)
[2022-10-30] MEDS: PROTONIX PO SCH (05:31)
[2022-10-30] MEDS: RELAFEN PO SCH (09:19)
[2022-10-30] MEDS: LOVENOX SUBCUT SCH (09:19)
[2022-10-30] MEDS: ASPIRIN EC PO SCH (09:20)
[2022-10-30] MEDS: COLACE PO SCH (09:20)
[2022-10-30] MEDS: NEURONTIN PO SCH (09:20)
[2022-10-30] MEDS: CYMBALTA PO SCH (09:20)
[2022-10-30] MEDS: HYZAAR 50-12.5 MG TAB PO SCH (09:20)
[2022-10-30] MEDS: SODIUM CHLORIDE PO SCH (09:20)
[2022-10-30] MEDS: LIPITOR PO SCH (09:20)
[2022-10-30] MEDS: COREG PO SCH (09:21)
--- NOTE | 2022-10-30 10:05 | DCSUM ---
Admission Date Admission Date: 10/26/22 Discharge Date Discharge Date: 10/30/22 Admission Diagnosis Admission Diagnosis: Intractable Pain, Hyponatremia Discharge Diagnosis Discharge Diagnosis: Intractable pain, Weakness & debility Hospital Provider Hospital Provider: REYNALDO GUEVARA, [facility] Primary Care Physician Primary Care Physician: LYNN CHAPMAN Summary of History and Physical Summary of History and Physical: 77-year-old female presented to the ER following a fall from yesterday. Patient sustained a fall around October 15 resulting in multiple pelvic fractures. Patient was discharged home to follow-up with physical therapy outpatient. Yesterday daughter was at home with patient and advised patient to walk without walker and patient fell again. No no new injuries noted. No loss of consciousness. Patient denies fever, chills, shortness of breath, chest pain, nausea, vomiting or diarrhea. Patient states that since the fall yesterday she has had uncontrolled pain which brought her to the ER today. She has been taking [place] 7.5's at home every 6 hours as needed for pain. Hospital Course Subjective: Patient was admitted for intractable pain, hyponatremia, and hypokalemia. She was started on morphine IV prn and norco Q6H prn for pain. On day 2, this was not effectively controlling her pain. Zanaflex was added as well which then helped. She has been weaned off of the morphine throughout stay for admission to the swingbed program. Sodium was replaced and was started on sodium tabs BID. Potassium was replaced and has remained within normal limits. Anemia was noted - no obvious signs of bleeding present, hemodynamically stable, iron labs within normal limits, will monitor cbc, recommend follow-up with GI for scope outpatient PT/OT evaluated patient and recommended swingbed program for further therapy to allow patient to perform ADLs at home with minimal pain and difficulty. All home medications were continued. Appearance: Pleasant, No Apparent Distress, Alert and Well-appearing HEENT: MMM, Supple and No JVD CVS: No Murmur Abdomen: Soft, Non-Tender and No Distention Respiratory: No Dyspnea Extremities: No Edema Vital Signs: Most Recent Vital Signs Temperature 97.1 F L 10/30/22 05:01 Temperature Source Oral 10/30/22 05:01 Temperature Source Infrared 10/26/22 08:49 Pulse Rate 70 10/30/22 05:01 Respiratory Rate 16 10/30/22 05:01 Blood Pressure 150/76 H 10/30/22 05:01 Blood Pressure Mean 100 10/30/22 05:01 Blood Pressure Left Arm 114/68 10/26/22 13:25 Blood Pressure Location Left Arm 10/30/22 05:01 Blood Pressure Position Supine 10/30/22 05:01 O2 Sat by Pulse Oximetry 99 10/30/22 05:01 Oxygen Delivery Method Room Air 10/30/22 05:01 Height 5 ft 10/28/22 08:13 Weight 139 lb 10/28/22 08:13 Lab Results Last 24 Hours: 10/30/22 04:40 WBC 4.81 RBC 2.71 L Hgb 8.0 L Hct 25.2 L MCV 93.0 MCH 29.5 MCHC 31.7 L RDW Coeff of Ramon 14.6 Plt Count 303 Immature Gran % (Auto) 0.4 Neut % (Auto) 54.5 Lymph % (Auto) 30.1 [place] % (Auto) 7.1 Eos % (Auto) 7.7 H Baso % (Auto) 0.2 Neut # (Auto) 2.6 Lymph # (Auto) 1.5 [place] # (Auto) 0.3 L Eos # (Auto) 0.4 Baso # (Auto) 0.0 Immature Gran # (Auto) 0.0 Sodium 135.6 Potassium 3.90 Chloride 104.5 Carbon Dioxide 30.1 H Anion Gap 4.90 BUN 15.4 Creatinine 0.76 Estimated GFR (MDRD) 74.00 BUN/Creatinine Ratio 20.26 Glucose 92.3 Calcium 8.49 Total Bilirubin 0.45 AST 25.2 ALT 18.8 Alkaline Phosphatase 292.2 H Total Protein 5.88 L Albumin 2.96 L Globulin 2.92 Albumin/Globulin Ratio 1.01 Discharge Instructions Discharge Planning: Discharge Planning > 40 minutes Admit to swingbed Activity as tolerated PT/OT Regular diet [place] Q6H prn and zanaflex bid prn for pain Plan to D/C lindsay when patient able to ambulate to bedside commode effectively. Discharge Medications: Medications at Discharge (Home Meds & RX) ibuprofen 200 mg capsule 400 mg PO PRN PRN Analgesia 07/22/15 aspirin 81 mg tablet,delayed release (Aspir-Low) 81 mg PO DAILY 11/07/17 fluoxetine 20 mg capsule (Prozac) 1 cap PO DAILY 11/07/17 atorvastatin 80 mg tablet (Lipitor) 1 tab PO DAILY 11/09/17 gabapentin 300 mg capsule 300 mg PO TID 11/09/17 carvedilol 6.25 mg tablet 6.25 mg PO BID 10/26/22 duloxetine 20 mg capsule,delayed release (Cymbalta) 30 mg PO TID 10/26/22 hydrocodone 7.5 mg-acetaminophen 325 mg tablet 1 tab PO Q6H PRN pain 10/26/22 levothyroxine 50 mcg tablet (Synthroid) 50 mcg PO DAILY 10/26/22 losartan 100 mg-hydrochlorothiazide 25 mg tablet (Hyzaar) 1 tab PO DAILY 10/26/22 nabumetone 500 mg tablet 500 mg PO BID 10/26/22 nitrofurantoin 100 mg capsule 100 mg PO BEDTIME 10/26/22 pantoprazole 40 mg tablet,delayed release (Protonix) 40 mg PO BID 10/26/22 Discharge Plan Discharge Discharge Orders: Discharge Patient (ONCE); Ordered 10/30/22 Ordered By: SANJUANITA MORRISON Patient Disposition: DISCH W/I HOSP TO SWING BD Prescriptions: No Action duloxetine [Cymbalta] 20 mg capsule,delayed release(DR/EC) 30 mg PO TID hydrocodone-acetaminophen 7.5-325 mg tablet 1 tab PO Q6H PRN (Reason: pain) carvedilol 6.25 mg tablet 6.25 mg PO BID Rx Instructions: must administer with a meal/food losartan-hydrochlorothiazide [Hyzaar] 100-25 mg tablet 1 tab PO DAILY nitrofurantoin 100 mg capsule 100 mg PO BEDTIME Rx Instructions: must administer with a meal/food nabumetone 500 mg tablet 500 mg PO BID levothyroxine [Synthroid] 50 mcg tablet 50 mcg PO DAILY pantoprazole [Protonix] 40 mg tablet,delayed release (DR/EC) 40 mg PO BID ibuprofen 200 MG capsule 400 mg PO PRN PRN (Reason: Analgesia) aspirin [Aspir-Low] 81 MG tablet,delayed release (DR/EC) 81 mg PO DAILY fluoxetine [Prozac] 20 MG capsule 1 cap PO DAILY Hold Instructions: doctor changed atorvastatin [Lipitor] 80 MG tablet 1 tab PO DAILY gabapentin 300 MG capsule 300 mg PO TID Did you review [place] IMAGE ARCHIVIST for ALL controlled substances?: No Discussed opioids are addictive and Narcan is available by prescription or from pharmacy.: No Condition: Good
== END 2022-10-30 11:02 | disposition swing bed (61) | DRG 536 ==
LOC: ED 08:48 → MEDSURG B 08:48
PROVIDERS: ADMIT Hospitalist; ATTEND Nurse Practitioner Family
DX: F41.9 Anxiety disorder, unspecified; S32.17XA Type 4 fracture of sacrum, initial encounter for closed fracture; F17.210 Nicotine dependence, cigarettes, uncomplicated; S32.502A Unspecified fracture of left pubis, initial encounter for closed fracture; E87.1 Hypo-osmolality and hyponatremia; E87.6 Hypokalemia; R39.81 Functional urinary incontinence; K21.9 Gastro-esophageal reflux disease without esophagitis; E78.5 Hyperlipidemia, unspecified; I10 Essential (primary) hypertension; D64.9 Anemia, unspecified

== ENCOUNTER 2023-05-17 08:18 | Observation (INO) ==
--- NOTE | 2023-05-17 08:59 | ED.PDOC ---
General ED Provider: Dr. MAGDY MODI MD Chief Complaint: Chest Pain Stated Complaint: HPI: Brought in by EMS for chest pain across the lower chest and radiating to both arms twice. Pain is intermittent and mostly a dull ache. No associated SOB, N/V, diaphoresis or palpitation. Had 3-4 stents 3-4 years ago, 2 separate occasions in a short time period. Sees Dr. Galvan, her metal gauge maker, annually and her next appt is a week from today. No prior stress test since her stents. Never a smoker. She did sustained a pelvic fx from a fall in her doctor's office back in April and uses a walker. She also admits to a lot of anxiety and asked, "Could anxiety causes this?" She had been fairly active before the recent fall and no exertional chest pain. She does have a quite a bit of "indigestion" and her sx before the stenting was bad indigestion. Time Seen by Provider: 05/17/23 08:37 Mode of Arrival: Ambulance Information Source: Patient and EMT Exam Limitations: No limitations Primary Care Provider: JADEN CHAPMAN Referred to ED by: Other (self) Nursing and Triage Documentation Reviewed and Agree: Yes What is Opioid Naive?: *Opioid Naive implies the patient is not already taking opioids or not chronically receiving opioids on a daily basis. *PRN dosing is not "usually" associated with tolerance. *Patients are at higher risk of over-sedation and aspiration. What is Opioid Tolerant?: *Opioid Tolerance implies less than the expected response to an opioid. *Acquired tolerance is defined by the patient taking 60mg of oral morphine daily (or equianalgesic dose of another opioid) for 1 week or more. *Often associated with chronic pain. *May take more than usual dose to achieve desired pain control. Review of Systems Review Of Systems Constitutional: Denies Chills or Fever Eyes: Reports No symptoms Ears, Nose, Mouth, Throat: Reports No symptoms Respiratory: Reports No symptoms Cardiac: Reports Chest pain; Denies Edema, Irregular heart rate or Palpitations GI: Reports Other (Not much of an appetite due to her anxiety); Denies Abdominal pain, Nausea or Vomiting : Reports No symptoms Musculoskeletal: Reports No symptoms Skin: Reports No symptoms Neurological: Reports Anxiety; Denies Depressed [facility] Medical History Acid reflux disease K21.9 - Gastro-esophageal reflux disease without esophagitis (ICD-10) Anxiety F41.9 - Anxiety disorder, unspecified (ICD-10) Breast cancer C50.919 - Malignant neoplasm of unspecified site of unspecified female breast (ICD-10) Closed fracture of pubic ramus S32.599A - Other specified fracture of unspecified pubis, initial encounter for closed fracture (ICD-10) Compression fx, thoracic spine S22.000A - Wedge compression fracture of unspecified thoracic vertebra, initial encounter for closed fracture (ICD-10) Hypercholesteremia E78.00 - Pure hypercholesterolemia, unspecified (ICD-10) Hypertension I10 - Essential (primary) hypertension (ICD-10) Neuropathy G62.9 - Polyneuropathy, unspecified (ICD-10) Sacral insufficiency fracture M84.48XA - Pathological fracture, other site, initial encounter for fracture (ICD-10) Family History Other CHF (congestive heart failure) Coronary artery arteriosclerosis Hypertension Social History Smoking and tobacco status: Never smoker Surgical History History of ankle surgery Z98.890 - Other specified postprocedural states (ICD-10) 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 - Presence of aortocoronary bypass graft (ICD-10) Status post appendectomy Z90.49 - Acquired absence of other specified parts of digestive tract (ICD- 10) Status post cholecystectomy Z90.49 - Acquired absence of other specified parts of digestive tract (ICD- 10) Status post mastectomy Z90.10 - Acquired absence of unspecified breast and nipple (ICD-10) Status post tonsillectomy Z90.89 - Acquired absence of other organs (ICD-10) Female Reproductive History Menstrual Hx Hysterectomy: No Hx Tubal Ligation: No Physical Exam Physical Exam Appearance: Reports Well-nourished; Denies Ill-appearing or No pain distress Ill-appearing: None Pain Distress: None Eyes: Reports BHAVIK and EOMI ENT: Reports Nose normal and Oropharynx normal Neck: Supple Respiratory: Reports Breath sounds clear and Breath sounds equal; Denies Wheezes or Retractions Cardiovascular: Reports RRR, Pulses normal, No rub and No murmur GI/: Reports Soft, Nontender, No masses and Bowel sounds normal Musculoskeletal: Reports Normal strength, ROM intact and No edema Skin: Reports Warm, Dry and Normal color Neurological: Reports Sensation intact and Motor intact Psychiatric: Reports Affect appropriate and Mood appropriate Interpretation EKG Interpretation EKG Interpretation By: ED Physician Time of EKG #1: 08:31 Rate: Normal Rhythm: Sinus Ectopy: None [place]: NL ST Segment: Normal Interpretation: Normal EKG Radiology Interpretation Radiology Interpretation By: Radiologist Radiology Results: No acute changes Exam Interpreted: CXR Xray Comments: Atherosclerosis with coronary stents, otherwise unremarkable. Physician Notification Case Discussed Physician Notified: Jaden Chapman @ 1100 hr Physician Notified: Shoaib Fraga Time of Notification: 12:00 Comments: Agreed with OBS admit Course Course 05/17/23 09:04 05/17/23 09:04 Orders, Labs, Meds: Lab Review 05/17/23 05/17/23 05/17/23 09:04 10:08 11:20 WBC 3.69 L RBC 2.62 L Hgb 7.5 L Hct 23.8 L MCV 90.8 MCH 28.6 MCHC 31.5 L RDW Coeff of Ramon 14.7 Plt Count 420 Immature Gran % (Auto) 0.3 Neut % (Auto) 55.0 Lymph % (Auto) 33.3 [place] % (Auto) 8.1 Eos % (Auto) 3.0 Baso % (Auto) 0.3 Neut # (Auto) 2.0 Lymph # (Auto) 1.2 [place] # (Auto) 0.3 L Eos # (Auto) 0.1 Baso # (Auto) 0.0 Immature Gran # (Auto) 0.0 Sodium 138.0 Potassium 2.94 L Chloride 109.1 H Carbon Dioxide 23.5 Anion Gap 8.34 BUN 7.0 Creatinine 0.68 Estimated GFR (MDRD) 84.00 BUN/Creatinine Ratio 10.29 Glucose 97.5 Calcium 8.57 Magnesium 2.03 Iron 36.1 L TIBC 200 L % Saturation 18 Total Bilirubin 0.53 AST 25.4 ALT 15.9 Alkaline Phosphatase 237.2 H Troponin I < 0.012 0.012 Total Protein 6.59 Albumin 3.04 L Globulin 3.55 Albumin/Globulin Ratio 0.85 Vitamin B12 574 Stl Occult Blood (IFOB) Negative Stool Occult Blood #2 No specimen received Stool Occult Blood #3 No specimen received SARS CoV-2 RNA Rapid TOMAS 05/17/23 11:25 WBC RBC Hgb Hct MCV MCH MCHC RDW Coeff of Ramon Plt Count Immature Gran % (Auto) Neut % (Auto) Lymph % (Auto) [place] % (Auto) Eos % (Auto) Baso % (Auto) Neut # (Auto) Lymph # (Auto) [place] # (Auto) Eos # (Auto) Baso # (Auto) Immature Gran # (Auto) Sodium Potassium Chloride Carbon Dioxide Anion Gap BUN Creatinine Estimated GFR (MDRD) BUN/Creatinine Ratio Glucose Calcium Magnesium Iron TIBC % Saturation Total Bilirubin AST ALT Alkaline Phosphatase Troponin I Total Protein Albumin Globulin Albumin/Globulin Ratio Vitamin B12 Stl Occult Blood (IFOB) Stool Occult Blood #2 Stool Occult Blood #3 SARS CoV-2 RNA Rapid TOMAS Negative Orders Category Date Time Status EKG-(ED ONLY) Stat CARDIO 05/17/23 08:46 Completed CBC W/ AUTO DIFF Stat LAB 05/17/23 09:04 Completed CMP [COMPREHENSIVE METABOLIC PANEL] Stat LAB 05/17/23 09:04 Completed HEMOCCULT [OCCULT BLOOD, STOOL] Stat LAB 05/17/23 10:08 Completed IRON AND TIBC Stat LAB 05/17/23 09:04 Completed MAGNESIUM Stat LAB 05/17/23 09:04 Completed SARS COV-2 RNA RAPID TOMAS Stat LAB 05/17/23 11:25 Completed TROPONIN I Stat LAB 05/17/23 09:04 Completed TROPONIN I Stat LAB 05/17/23 11:20 Completed VITAMIN B12 Stat LAB 05/17/23 09:04 Completed Lorazepam [Ativan] Meds 05/17/23 09:15 Discontinued 0.5 mg IVP ONCE ONE Lorazepam [Ativan] Meds 05/17/23 09:27 Discontinued 1 mg PO ONCE ONE Potassium Chloride [K-Dur] Meds 05/17/23 09:39 Discontinued 40 meq PO ONCE ONE Potassium Chloride [Potassium Chloride 10 Meq/100 ml Meds 05/17/23 09:39 Discontinued Premix] 10 meq in 100 ml IV ONCE CHEST, 1V AP ONLY Stat RADS 05/17/23 08:38 Completed Medications Discontinued Medications Generic Name Dose Route Start Last Admin Trade Name Freq PRN Reason Stop Dose Admin Potassium Chloride 10 meq in 100 mls @ 100 mls/hr 05/17/23 09:39 05/17/23 10:02 Potassium Chloride 10 Meq/100 Ml Premix IV 05/17/23 10:38 100 mls/hr ONCE ONE Administration Lorazepam 0.5 mg 05/17/23 09:15 05/17/23 09:26 Lorazepam Inj 2 Mg/Ml Vial IVP 05/17/23 09:16 Not Given ONCE ONE Lorazepam 1 mg 05/17/23 09:27 05/17/23 09:30 Lorazepam 1 Mg Tablet PO 05/17/23 09:28 1 mg ONCE ONE Administration Potassium Chloride 40 meq 05/17/23 09:39 05/17/23 09:53 Potassium Chloride 20 Meq Tab PO 05/17/23 09:40 40 meq ONCE ONE Administration Repeat troponin negative. She is quite anemic and probably iron deficient. Hemoccult negative. With her chest pain (and possibly angina), a unit of PRBC would benefit her a lot. Will try to call her metal gauge maker to set her up for appt instead of next Monday. Should address her anxiety. I did give her anxiolytic. She have been on some anti-anxiety but said none help her much. Case discussed with Shoaib Vital Signs: Temp Pulse Resp BP Pulse Ox 05/17/23 08:19 98.2 F 70 18 156/77 H 98 SHARON Risk Score Age >/= 65: Yes >/= 3 CAD Risk Factors: No Known CAD (Stenosis >/= 50%): Yes ASA Use in Past 7 Days: Yes Severe Angina (>/= 2 episodes in 24 hours): No EKG ST Changes >/= 0.5mm: No Postive Cardiac Marker: No SHARON Total Score: 3 SHARON Risk Score: Risk Score Odds of by 30D 0 0.1 (0.1-0.2) 1 0.3 (0.2-0.3) 2 0.4 (0.3-0.5) 3 0.7 (0.6-0.9) 4 1.2 (1.0-1.5) 5 2.2 (1.9-2.6) 6 3.0 (2.5-3.6) 7 4.8 (3.8-6.1) Physician Progress Note: Discussed with Lynda about her anemia and previous CBC. Review her CBC and H&H was 12/36 in October 2019 and dropped to 8.8/28 in May 2022. It increased to 11/33 in October 2022 but dropped a couple of days later. She did recall iron infusion at this hospital 2 years ago. Stool guiac taken. Denied any recent hematochezia or melena. Ok to admit overnight to hospitalist per Lynda. I was chula to call Dr. Galvan and try to get her in the office sooner. Suspected this is more non-anginal pain but will do 3 hr repeat troponin. [] Discharge Plan Discharge Patient Disposition: PLACED OBSERVATION Discharge Problem: Anxiety, generalized, Anemia, Chest pain, precordial Did you review [place] [employer] GENERALIST for ALL controlled substances?: Not Applicable ED Provider: MAGDY MODI Condition: Fair
[2023-05-17 09:08] LABS: BASOPHILS % (AUTO) 0.3 % (0.0-3.0); EOSINOPHILS # (AUTO) 0.1 K/ul (0.0-0.7); HEMATOCRIT 23.8 % (37.0-47.0); HEMOGLOBIN 7.5 g/dl (12.0-16.0); IMMATURE GRANULOCYTE % (AUTO) 0.3 % (0.0-5.0); LYMPHOCYTES # (AUTO) 1.2 K/uL (0.60-3.4); LYMPHOCYTES % (AUTO) 33.3 (10.0-50.0); MEAN CORPUSCULAR HEMOGLOBIN 28.6 pg (27.0-31.0); MEAN CORPUSCULAR HGB CONC 31.5 (31.8-35.4); MEAN CORPUSCULAR VOLUME 90.8 fl (81.0-99.0); MONOCYTES # (AUTO) 0.3 K/uL (0.4-2.0); MONOCYTES % (AUTO) 8.1 (0-10); PLATELET COUNT 420 10^3/uL (140-440); RDW COEFFICIENT OF VARIATION 14.7 % (11.6-14.8); RED BLOOD COUNT 2.62 10^6/ul (4.20-5.40); WHITE BLOOD COUNT 3.69 K/ul (4.6-10.2)
[2023-05-17] MEDS ORDERED: ATIVAN IVP ONE (09:15)
[2023-05-17 09:21] LABS: ALANINE AMINOTRANSFERASE 15.9 U/L (0-35); ALBUMIN 3.04 g/dL (3.5-5.0); ALKALINE PHOSPHATASE 237.2 U/L (53-141); ASPARTATE AMINO TRANSFERASE 25.4 U/L (14-36); BILIRUBIN,TOTAL 0.53 mg/dL (0.2-1.3); CALCIUM 8.57 mg/dL (8.4-10.2); CARBON DIOXIDE 23.5 mmol/L (22-30.0); CHLORIDE 109.1 mmol/L (98-107); CREATININE 0.68 mg/dL (0.60-1.30); GLUCOSE 97.5 mg/dL (74-106); MAGNESIUM 2.03 mg/dL (1.6-2.3); POTASSIUM 2.94 mmol/L (3.5-5.1); TOTAL PROTEIN 6.59 g/dL (6.3-8.2)
[2023-05-17] MEDS ORDERED: ATIVAN PO ONE (09:27)
[2023-05-17 09:33] LABS: TROPONIN I < 0.012 ng/ml (0.0000-0.120)
[2023-05-17] MEDS ORDERED: POTASSIUM CHLORIDE 10 MEQ/100 ML PREMIX 10 MEQ/100 ML BAG IV ONE (09:39)
[2023-05-17] MEDS ORDERED: K-DUR PO ONE (09:39)
[2023-05-17 09:51] LABS: IRON 36.1 ug/dL (37-170)
--- NOTE | 2023-05-17 10:01 | DI ---
EXAM: CHEST RADIOGRAPH TECHNIQUE: Single frontal chest radiograph. HISTORY: Chest pain. COMPARISON: None. FINDINGS: The lungs are clear. The heart size is normal. There is calcification in the aorta consistent with atherosclerosis. Coron otis stent visualized. There is no pleural effusion. There is no pneumothorax. IMPRESSION: 1. Atherosclerosis. 2. Coronary stent. 3. Otherwise unremarkable chest radiograph.
[2023-05-17 10:21] LABS: OCCULT BLOOD SAMPLE 1 NEGATIVE (NEGATIVE); OCCULT BLOOD SAMPLE 2 NO SPECIMEN RECEIVED (NEGATIVE); OCCULT BLOOD SAMPLE 3 NO SPECIMEN RECEIVED (NEGATIVE)
[2023-05-17 11:45] LABS: SARS COV-2 RNA RAPID NAAT NEGATIVE (NEGATIVE)
[2023-05-17] MEDS ORDERED: ZOFRAN 4 MG/2 ML IVP PRN (13:28)
--- NOTE | 2023-05-17 13:31 | PCM ---
Date of Service Date Seen by Provider: 05/17/23 Time Seen by Provider: 14:00 Admit Day/Time Admission Date: 05/17/23 Admission Time: 12:26 Reason for Admission Chief Complaint: CHEST PAIN, ANXIETY, ANEMIA Hospital Provider Hospital Provider[facility] Physician Primary Care Physician: LYNN CHAPMAN History of Present Illness History of Present Illness: Patient is a 77 year old female from home with pmxh CAD s/p stenting, GERD, hyperlipidemia, anxiety, recent pelvic fractures who presents to the ER with chest pain for past month, worse over the last week. Happens even at rest, feels like a pressure, radiates to her left arm. She usually lies down and it resolves after several minutes. Happened again last night. Continued to have pressure this morning bringing her to the ER. She follows with Dr. Galvan, cardiology in [place]. Last stent was about 4 years ago. Doesn't think she's had any cardiac work up since then. In ER she was given asa and lorazepam. Trop negative, EKG unchanged. ERP called Dr. Galvan office but hadn't heard back. She has an apt with him next week. She was also noted to have acute on chronic anemia. Hgb 7.5, usually around 9. Denies black stools. No abd pain. Iron borderline low. Of note, she fell on 04/29 and had a pelvic fracture on the right side. Was evaluated at [facility] and spent about 3 days there and was discharged home, per the patient. Case Discussed With Case Discussed With: Patient's case was discussed with the ER Physicians, Dr. Steward. [facility] Medical History Hypercholesteremia E78.00 - Pure hypercholesterolemia, unspecified (ICD-10) Acid reflux disease K21.9 - Gastro-esophageal reflux disease without esophagitis (ICD-10) Breast cancer C50.919 - Malignant neoplasm of unspecified site of unspecified female breast (ICD-10) Neuropathy G62.9 - Polyneuropathy, unspecified (ICD-10) Hypertension I10 - Essential (primary) hypertension (ICD-10) Closed fracture of pubic ramus S32.599A - Other specified fracture of unspecified pubis, initial encounter for closed fracture (ICD-10) Sacral insufficiency fracture M84.48XA - Pathological fracture, other site, initial encounter for fracture (ICD-10) Compression fx, thoracic spine S22.000A - Wedge compression fracture of unspecified thoracic vertebra, initial encounter for closed fracture (ICD-10) Anxiety F41.9 - Anxiety disorder, unspecified (ICD-10) Surgical History 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 - Presence of aortocoronary bypass graft (ICD-10) Status post mastectomy Z90.10 - Acquired absence of unspecified breast and nipple (ICD-10) History of ankle surgery Z98.890 - Other specified postprocedural states (ICD-10) Status post tonsillectomy Z90.89 - Acquired absence of other organs (ICD-10) Status post cholecystectomy Z90.49 - Acquired absence of other specified parts of digestive tract (ICD- 10) Status post appendectomy Z90.49 - Acquired absence of other specified parts of digestive tract (ICD- 10) Family History Other CHF (congestive heart failure) Coronary artery arteriosclerosis Hypertension Social History Smoking and tobacco status: Never smoker Allergies Allergies Allergy/AdvReac Type Severity Reaction Status Date / Time No Known Allergies Allergy Verified 05/17/23 08:27 Current Medications Home Medications ibuprofen 200 mg capsule 400 mg PO PRN PRN Analgesia 07/22/15 [History Confirmed 05/17/23 Last Taken Unknown] aspirin 81 mg tablet,delayed release (Aspir-Low) 81 mg PO DAILY 11/07/17 [History Confirmed 05/17/23 Last Taken 11/09/17 08:00] atorvastatin 80 mg tablet (Lipitor) 1 tab PO DAILY 11/09/17 [History Confirmed 05/17/23 Last Taken 11/08/17 17:00] gabapentin 300 mg capsule 300 mg PO TID 11/09/17 [History Confirmed 05/17/23 Last Taken 11/08/17 21:00] pantoprazole 40 mg tablet,delayed release (Protonix) 40 mg PO BID 10/26/22 [History Confirmed 05/17/23 Last Taken Unknown] hydrocodone 10 mg-acetaminophen 325 mg tablet 1 tab PO Q6HR PRN moderate pain (scale score 5-6) #30 tabs 11/09/22 [Rx Confirmed 05/17/23 Last Taken Unknown] bupropion HCl 75 mg tablet 75 mg PO DAILY 05/17/23 [History Confirmed 05/17/23 Last Taken Unknown] Home Acetaminophen (Acetaminophen 325 Mg Tablet) 650 mg PO Q4H PRN PRN Reason: Mild Pain Hydrocodone Bitart/Acetaminophen (Hydrocodone Bit/Acetaminophen 10/325 Mg Tablet) 1 tab PO Q6HR PRN PRN Reason: MODERATE PAIN Last Admin: 05/17/23 15:34 Dose: 1 tab Aspirin (Aspirin 81 Mg Tablet.) 81 mg PO DAILYWM2 MÓNICA Atorvastatin Calcium (Atorvastatin Calcium 20 Mg Tablet) 80 mg PO DAILY MÓNICA Bupropion HCl (Bupropion Hcl 75 Mg Tablet) 75 mg PO DAILY [facility] Last Admin: 05/17/23 15:29 Dose: 75 mg Gabapentin (Gabapentin 300 Mg Capsule) 300 mg PO TID [facility] Last Admin: 05/17/23 15:29 Dose: 300 mg Ondansetron HCl (Ondansetron Hcl/Pf 4 Mg/2 Ml Sdv) 4 mg IVP Q6H PRN PRN Reason: Nausea / Vomiting Pantoprazole Sodium (Pantoprazole Sodium 40 Mg Tablet.) 40 mg PO BIDAC2 [facility] Discontinued Medications Hydroxyzine Pamoate (Hydroxyzine Pamoate 25 Mg Capsule) 50 mg PO ONCE ONE Stop: 05/17/23 14:58 Potassium Chloride (Potassium Chloride 10 Meq/100 Ml Premix) 10 meq in 100 mls @ 100 mls/hr IV ONCE ONE Stop: 05/17/23 10:38 Last Admin: 05/17/23 10:02 Dose: 100 mls/hr Lorazepam (Lorazepam Inj 2 Mg/Ml Vial) 0.5 mg IVP ONCE ONE Stop: 05/17/23 09:16 Last Admin: 05/17/23 09:26 Dose: Not Given Lorazepam (Lorazepam 1 Mg Tablet) 1 mg PO ONCE ONE Stop: 05/17/23 09:28 Last Admin: 05/17/23 09:30 Dose: 1 mg Potassium Chloride (Potassium Chloride 20 Meq Tab) 40 meq PO ONCE ONE Stop: 05/17/23 09:40 Last Admin: 05/17/23 09:53 Dose: 40 meq Opioid Naive vs. Tolerant Does Patient Take Opioids?: Yes Is Patient Opioid Naive?: No What is Opioid Naive?: *Opioid Naive implies the patient is not already taking opioids or not chronically receiving opioids on a daily basis. *PRN dosing is not "usually" associated with tolerance. *Patients are at higher risk of over-sedation and aspiration. What is Opioid Tolerant?: *Opioid Tolerance implies less than the expected response to an opioid. *Acquired tolerance is defined by the patient taking 60mg of oral morphine daily (or equianalgesic dose of another opioid) for 1 week or more. *Often associated with chronic pain. *May take more than usual dose to achieve desired pain control. Review of Systems Head: Reports Normocephalic and Atraumatic Cardiovascular: Reports Chest pain and Chest Pressure; Denies Edema Respiratory: Denies Cough or Shortness of air Gastrointestinal: Denies Nausea, Vomiting, Diarrhea, Abdominal pain or Melena Genitourinary: Denies Dysuria or Frequency Musculoskeletal: Reports Other (+chronic pain ) Dermatologic: Denies Rashes Psychiatric: Reports Anxiety Physical examination Most Recent Vital Signs: Most Recent Vital Signs Temperature 98.2 F 05/17/23 08:19 Temperature Source Infrared 05/17/23 08:19 Pulse Rate 70 05/17/23 08:19 Respiratory Rate 18 05/17/23 08:19 Blood Pressure 156/77 H 05/17/23 08:19 O2 Sat by Pulse Oximetry 98 05/17/23 08:19 Height 5 ft 05/17/23 08:19 Weight 133 lb 2.547 oz 05/17/23 08:19 Appearance: Positive No Apparent Distress and Alert and Oriented x3 Skin: Positive [place], Warm and Good Turgor; Negative Rashes HEENT: Positive Normocephalic and Atraumatic Neck: Positive Supple and Midline Trachea Chest/Lungs: Positive Clear to Auscultation Bilaterally; Negative Rales, Rhonci or Wheezes Heart: Positive RRR GI/: Positive Soft, Nontender, Bowel Sounds Normal and No Distention Extremities: Negative Edema Neurological: Positive Alert, Oriented and Other (+generalized weakness ) Psychiatric: Positive Oriented x4, Appropriate Mood and Appropriate Affect Labs This Visit Labs This Visit: Labs This Visit 05/17/23 05/17/23 05/17/23 09:04 10:08 11:20 WBC 3.69 L RBC 2.62 L Hgb 7.5 L Hct 23.8 L MCV 90.8 MCH 28.6 MCHC 31.5 L RDW Coeff of Ramon 14.7 Plt Count 420 Immature Gran % (Auto) 0.3 Neut % (Auto) 55.0 Lymph % (Auto) 33.3 [place] % (Auto) 8.1 Eos % (Auto) 3.0 Baso % (Auto) 0.3 Neut # (Auto) 2.0 Lymph # (Auto) 1.2 [place] # (Auto) 0.3 L Eos # (Auto) 0.1 Baso # (Auto) 0.0 Immature Gran # (Auto) 0.0 Sodium 138.0 Potassium 2.94 L Chloride 109.1 H Carbon Dioxide 23.5 Anion Gap 8.34 BUN 7.0 Creatinine 0.68 Estimated GFR (MDRD) 84.00 BUN/Creatinine Ratio 10.29 Glucose 97.5 Calcium 8.57 Magnesium 2.03 Iron 36.1 L TIBC 200 L % Saturation 18 Total Bilirubin 0.53 AST 25.4 ALT 15.9 Alkaline Phosphatase 237.2 H Troponin I < 0.012 0.012 Total Protein 6.59 Albumin 3.04 L Globulin 3.55 Albumin/Globulin Ratio 0.85 Vitamin B12 574 Stl Occult Blood (IFOB) Negative Stool Occult Blood #2 No specimen received Stool Occult Blood #3 No specimen received SARS CoV-2 RNA Rapid TOMAS 05/17/23 11:25 WBC RBC Hgb Hct MCV MCH MCHC RDW Coeff of Ramon Plt Count Immature Gran % (Auto) Neut % (Auto) Lymph % (Auto) [place] % (Auto) Eos % (Auto) Baso % (Auto) Neut # (Auto) Lymph # (Auto) [place] # (Auto) Eos # (Auto) Baso # (Auto) Immature Gran # (Auto) Sodium Potassium Chloride Carbon Dioxide Anion Gap BUN Creatinine Estimated GFR (MDRD) BUN/Creatinine Ratio Glucose Calcium Magnesium Iron TIBC % Saturation Total Bilirubin AST ALT Alkaline Phosphatase Troponin I Total Protein Albumin Globulin Albumin/Globulin Ratio Vitamin B12 Stl Occult Blood (IFOB) Stool Occult Blood #2 Stool Occult Blood #3 SARS CoV-2 RNA Rapid TOMAS Negative Imaging Imaging: EXAM: CHEST RADIOGRAPH TECHNIQUE: Single frontal chest radiograph. HISTORY: Chest pain. COMPARISON: None. FINDINGS: The lungs are clear. The heart size is normal. There is calcification in the aorta consistent with atherosclerosis. Coronary stent visualized. There is no pleural effusion. There is no pneumothorax. IMPRESSION: 1. Atherosclerosis. 2. Coronary stent. 3. Otherwise unremarkable chest radiograph. Review Statement Review Statement: I have independently reviewed and interpreted the labs/EKGs/imaging that were ordered by the ER provider. I have reviewed all outside records that are available currently in our EMR including imaging/notes/labs from previous v isits. Plan Plan: 1. Acute on chronic anemia - Hgb 7.5, baseline >9. Due to her significant cardiac history and current angina, will transfuse 1U PRBCs. Check H&H 1 hr post transfusion. Will start on iron tablets for borderline low iron. Occult stool negative. Rec outpt f/u. 2. Hypokalemia - Replaced. Repeat in AM. 3. Chest pain - Could be due to anemia. Trend trops and EKGs. F/u with Dr. Galvan as scheduled next week. 4. Hyperlipidemia - Cont home meds 5. Anxiety - Cont home meds 6. GERD - Cont home meds 7. Recent pelvic fracture - Cont hydrocodone prn. DVT Prophylaxis: Holding in light of anemia Time Spent: Greater than 80 minutes spent with patient, 50% of the time spent with this patient was devoted to counseling and coordination of care. [facility] minutes spent discussing advance care planning. DNR Admit to: Obs, will flip tomorrow if requiring another midnight Discussed Plan of Care with Dr. Cheryle Hernandez Medications Medication Orders: Medications Ordered Category Date Time Status Acetaminophen [Tylenol] Meds 05/17/23 13:28 Ordered 650 mg PO Q4H PRN Ondansetron HCl/Pf [Zofran 4 mg/2 ml] Meds 05/17/23 13:28 Ordered 4 mg IVP Q6H PRN
[2023-05-17 14:05] VITALS: BMI 25.2
[2023-05-17] MEDS ORDERED: VISTARIL PO ONE (14:57)
[2023-05-17] MEDS: WELLBUTRIN PO SCH (15:29)
[2023-05-17] MEDS: NEURONTIN PO SCH ×2 (15:29→20:52)
[2023-05-17] MEDS: NORCO 10-325 PO PRN ×2 (15:34→21:37)
[2023-05-17] MEDS: TYLENOL PO PRN (16:50)
[2023-05-17] MEDS: PROTONIX PO SCH (16:50)
[2023-05-17 20:52] LABS: HEMOGLOBIN 8.9 g/dl (12.0-16.0)
[2023-05-17] MEDS: LIPITOR PO SCH (20:52)
[2023-05-17] MEDS: VISTARIL PO PRN (22:20)
[2023-05-18 05:32] LABS: BASOPHILS % (AUTO) 0.4 % (0.0-3.0); EOSINOPHILS # (AUTO) 0.2 K/ul (0.0-0.7); EOSINOPHILS % (AUTO) 3.6 % (0.0-7.0); HEMATOCRIT 28.3 % (37.0-47.0); HEMOGLOBIN 8.7 g/dl (12.0-16.0); IMMATURE GRANULOCYTE % (AUTO) 0.2 % (0.0-5.0); LYMPHOCYTES # (AUTO) 2.1 K/uL (0.60-3.4); LYMPHOCYTES % (AUTO) 37.6 (10.0-50.0); MEAN CORPUSCULAR HEMOGLOBIN 28.2 pg (27.0-31.0); MEAN CORPUSCULAR HGB CONC 30.7 (31.8-35.4); MEAN CORPUSCULAR VOLUME 91.6 fl (81.0-99.0); MONOCYTES # (AUTO) 0.4 K/uL (0.4-2.0); NEUTROPHILS # (AUTO) 2.8 K/ul (2.0-6.9); NEUTROPHILS % (AUTO) 50.2 % (42.2-75.2); PLATELET COUNT 406 10^3/uL (140-440); RDW COEFFICIENT OF VARIATION 15.3 % (11.6-14.8); RED BLOOD COUNT 3.09 10^6/ul (4.20-5.40)
[2023-05-18 05:48] LABS: ALANINE AMINOTRANSFERASE 15.4 U/L (0-35); ALBUMIN 2.99 g/dL (3.5-5.0); ALKALINE PHOSPHATASE 226.9 U/L (53-141); ASPARTATE AMINO TRANSFERASE 25.2 U/L (14-36); BILIRUBIN,TOTAL 0.68 mg/dL (0.2-1.3); BLOOD UREA NITROGEN 9.1 mg/dL (7-17); CALCIUM 8.47 mg/dL (8.4-10.2); CARBON DIOXIDE 24.6 mmol/L (22-30.0); CHLORIDE 110.7 mmol/L (98-107); CREATININE 0.71 mg/dL (0.60-1.30); GLUCOSE 80.8 mg/dL (74-106); POTASSIUM 3.5 mmol/L (3.5-5.1); TOTAL PROTEIN 6.47 g/dL (6.3-8.2)
[2023-05-18] MEDS: PROTONIX PO SCH (05:53)
[2023-05-18] MEDS: NORCO 10-325 PO PRN ×2 (05:53→13:19)
[2023-05-18] MEDS: VISTARIL PO PRN ×2 (06:24→13:20)
[2023-05-18] MEDS ORDERED: ASPIRIN EC PO SCH (07:30)
[2023-05-18] MEDS: LIPITOR PO SCH (08:12)
[2023-05-18] MEDS: WELLBUTRIN PO SCH (08:37)
[2023-05-18] MEDS: NEURONTIN PO SCH ×2 (08:37→15:15)
[2023-05-18] MEDS: TYLENOL PO PRN (08:43)
[2023-05-18] MEDS ORDERED: LIPITOR PO SCH ×2 (09:00→21:00)
[2023-05-18 09:24] VITALS: RESP 18
[2023-05-18 13:55] VITALS: BP 156/75; PULSE 74; TEMP 97.4
--- NOTE | 2023-05-18 14:57 | DCSUM ---
Admission Date Admission Date: 05/17/23 Discharge Date Discharge Date: 05/18/23 Admission Diagnosis Admission Diagnosis: 1. Acute on chronic anemia 2. Hypokalemia 3. Chest pain Discharge Diagnosis Discharge Diagnosis: 1. Acute on chronic anemia , improved 2. Hypokalemia - resolved 3. Chest pain - resolved, anxiety induced 4. Hyperlipidemia - Cont home meds 5. Anxiety - Cont home meds 6. GERD - Cont home meds 7. Recent pelvic fracture - Cont hydrocodone prn. Hospital Provider Hospital Provider: SHOAIB FRAGA PA-C, [facility] Primary Care Physician Primary Care Physician: LYNN CHAPMAN Summary of History and Physical Summary of History and Physical: Patient is a 77 year old female from home with pmxh CAD s/p stenting, GERD, hyperlipidemia, anxiety, recent pelvic fractures who presents to the ER with chest pain for past month, worse over the last week. Happens even at rest, feels like a pressure, radiates to her left arm. She usually lies down and it resolves after several minutes. Happened again last night. Continued to have pressure this morning bringing her to the ER. She follows with Dr. Galvan, cardiology in [place]. Last stent was about 4 years ago. Doesn't think she's had any cardiac work up since then. In ER she was given asa and lorazepam. Trop negative, EKG unchanged. ERP called Dr. Galvan office but hadn't heard back. She has an apt with him next week. She was also noted to have acute on chronic anemia. Hgb 7.5, usually around 9. Denies black stools. No abd pain. Iron borderline low. Of note, she fell on 04/29 and had a pelvic fracture on the right side. Was evaluated at [facility], [place] and spent about 3 days there and was discharged home, per the patient. Hospital Course Subjective: Patients trops remained unremarkable. EKG unchanged, NSR, no ST changes. She experienced some mild chest pressure after having an arguement with her this morning. It resolved after her left. She describes them not getting along recently, although 59 years, due to him expecting her to care for him. She is easily frustrated by this and then asks for something for anxiety. We trialed vistaril on a prn basis and she states this helps. Rechecked patient throughout the day and her chest pain had resolved. Re her low hgb, back in October she had a pelvic hematoma which her anemia was contributed to. However, it doesn't seem to have recovered. Iron is borderline low, we discussed starting an iron supplement. Occult stool negative. B 12 normal. We discussed further work up outpatient, such as possible colonoscopy, which she does not seem interested. She received 1U PRBCs and hgb improved to 8.7, closer to her baseline. She feels at baseline. No sob with exertion. VSS. She has an apt with Dr. Galvan office on Monday of next week, spoke with his office and they agree with f/u next week as scheduled. Return to ER with worsening symptoms. Appearance: Pleasant, No Apparent Distress and Alert HEENT: MMM CVS: Other (RRR) Abdomen: Soft, Non-Tender and No Distention Respiratory: No Accessory Muscle Use Extremities: No Edema Vital Signs: Most Recent Vital Signs Temperature 97.7 F 05/18/23 09:23 Temperature Source Tympanic 05/18/23 09:23 Temperature Source Infrared 05/17/23 08:19 Pulse Rate 75 05/18/23 09:23 Respiratory Rate 18 05/18/23 09:23 Blood Pressure 154/77 H 05/18/23 09:23 Blood Pressure Mean 102 05/18/23 09:23 Blood Pressure Left Arm 131/70 05/17/23 13:52 Blood Pressure Location Right Arm 05/18/23 09:23 Blood Pressure Position Sitting 05/18/23 09:23 O2 Sat by Pulse Oximetry 99 05/18/23 09:23 Oxygen Delivery Method Room Air 05/18/23 12:50 Height 5 ft 05/17/23 13:52 Weight 129 lb 05/17/23 13:52 Telemetry Type Remote Telemetry 05/18/23 07:00 Telemetry Monitoring Continues 05/18/23 07:00 Telemetry Heart Rate 59 L 05/18/23 07:00 EKG WV Interval 0.13 05/18/23 07:00 EKG QRS Interval 0.03 L 05/18/23 07:00 Telemetry Strip Reading SR 05/18/23 07:00 Imaging: EXAM: CHEST RADIOGRAPH TECHNIQUE: Single frontal chest radiograph. HISTORY: Chest pain. COMPARISON: None. FINDINGS: The lungs are clear. The heart size is normal. There is calcification in the aorta consistent with atherosclerosis. Coronary stent visualized. There is no pleural effusion. There is no pneumothorax. IMPRESSION: 1. Atherosclerosis. 2. Coronary stent. 3. Otherwise unremarkable chest radiograph. Lab Results Last 24 Hours: 05/18/23 05/17/23 05/17/23 05:20 23:00 20:41 WBC 5.50 RBC 3.09 L Hgb 8.7 L 8.9 L Hct 28.3 L 29.0 L MCV 91.6 MCH 28.2 MCHC 30.7 L RDW Coeff of Ramon 15.3 H Plt Count 406 Immature Gran % (Auto) 0.2 Neut % (Auto) 50.2 Lymph % (Auto) 37.6 Jennings % (Auto) 8.0 Eos % (Auto) 3.6 Baso % (Auto) 0.4 Neut # (Auto) 2.8 Lymph # (Auto) 2.1 Jennings # (Auto) 0.4 Eos # (Auto) 0.2 Baso # (Auto) 0.0 Immature Gran # (Auto) 0.0 Sodium 138.0 Potassium 3.50 Chloride 110.7 H Carbon Dioxide 24.6 Anion Gap 6.20 BUN 9.1 Creatinine 0.71 Estimated GFR (MDRD) 80.00 BUN/Creatinine Ratio 12.81 Glucose 80.8 Calcium 8.47 Total Bilirubin 0.68 AST 25.2 ALT 15.4 Alkaline Phosphatase 226.9 H Troponin I < 0.012 Total Protein 6.47 Albumin 2.99 L Globulin 3.48 Albumin/Globulin Ratio 0.85 Blood Type Antibody Screen Crossmatch ([facility]) 05/17/23 05/17/23 17:13 13:07 WBC RBC Hgb Hct MCV MCH MCHC RDW Coeff of Ramon Plt Count Immature Gran % (Auto) Neut % (Auto) Lymph % (Auto) Jennings % (Auto) Eos % (Auto) Baso % (Auto) Neut # (Auto) Lymph # (Auto) Jennings # (Auto) Eos # (Auto) Baso # (Auto) Immature Gran # (Auto) Sodium Potassium Chloride Carbon Dioxide Anion Gap BUN Creatinine Estimated GFR (MDRD) BUN/Creatinine Ratio Glucose Calcium Total Bilirubin AST ALT Alkaline Phosphatase Troponin I < 0.012 Total Protein Albumin Globulin Albumin/Globulin Ratio Blood Type A NEGATIVE Antibody Screen Negative Crossmatch ([facility]) See Detail Discharge Instructions Discharge Planning: Discharge Planning > [address] Cheryle Hernandez. Discharge Medications: Medications at Discharge (Home Meds & RX) ibuprofen 200 mg capsule 400 mg PO PRN PRN Analgesia 07/22/15 aspirin 81 mg tablet,delayed release (Aspir-Low) 81 mg PO DAILY 11/07/17 atorvastatin 80 mg tablet (Lipitor) 1 tab PO DAILY 11/09/17 gabapentin 300 mg capsule 300 mg PO TID 11/09/17 pantoprazole 40 mg tablet,delayed release (Protonix) 40 mg PO BID 10/26/22 hydrocodone 10 mg-acetaminophen 325 mg tablet 1 tab PO Q6HR PRN moderate pain (scale score 5-6) #30 tabs 11/09/22 bupropion HCl 75 mg tablet 75 mg PO DAILY 05/17/23 Discharge Plan Discharge Discharge Orders: Discharge Patient (ONCE); Ordered 05/18/23 Ordered By: SHOAIB FRAGA Activity Restrictions/Additional Instructions: DISCHARGE TO HOME F/U WITH CARDIOLOGY SCHEDULE MONDAY F/U WITH PCP RECOMMEND OUTPATIENT INVESTIGATION OF ANEMIA DIET: HEART HEALTHY ACTIVITY: TOLERATED IRON SUPPLEMENT RECOMMENDED Instructions: Anemia (GEN) Patient Disposition: HOME SELF-CARE Prescriptions: New hydroxyzine pamoate [Vistaril] 25 mg capsule 25 mg PO TID PRN (Reason: anxiety) Qty: 30 0RF Continued pantoprazole [Protonix] 40 mg tablet,delayed release (DR/EC) 40 mg PO BID hydrocodone-acetaminophen 10-325 mg Tablet 1 tab PO Q6HR PRN (Reason: moderate pain (scale score 5-6)) Qty: 30 0RF ibuprofen 200 MG capsule 400 mg PO PRN PRN (Reason: Analgesia) aspirin [Aspir-Low] 81 MG tablet,delayed release (DR/EC) 81 mg PO DAILY atorvastatin [Lipitor] 80 MG tablet 1 tab PO DAILY gabapentin 300 MG capsule 300 mg PO TID bupropion HCl 75 mg tablet 75 mg PO DAILY Did you review [place] [employer] for ALL controlled substances?: Yes Discussed opioids are addictive and Narcan is available by prescription or from pharmacy.: Yes Condition: Stable Referrals: LYNN CHAPMAN MD [Primary Care Provider] - 05/25/23 9:45 am
== END 2023-05-18 16:14 | disposition home or self-care (01) ==
LOC: ED 08:18 → MEDSURG B 08:18
PROVIDERS: ADMIT Hospitalist; ATTEND Physician Assistant
DX: F41.1 Generalized anxiety disorder; W19.XXXD Unspecified fall, subsequent encounter; Z20.822 Contact with and (suspected) exposure to COVID-19; E78.5 Hyperlipidemia, unspecified; S32.89XD Fracture of other parts of pelvis, subsequent encounter for fracture with routine healing; D64.9 Anemia, unspecified; E87.6 Hypokalemia; Z95.5 Presence of coronary angioplasty implant and graft; I25.10 Atherosclerotic heart disease of native coronary artery without angina pectoris; K21.9 Gastro-esophageal reflux disease without esophagitis; R07.2 Precordial pain